=== PATIENT | female | born 1960 | race African-American/Black ===

== ENCOUNTER → 2021-11-12 | Outpatient (CLI) | payer MEDICARE, OTHER | LOC: CARD 14:08 | PROVIDERS: ATTEND Family Medicine | DX: I49.9 Cardiac arrhythmia, unspecified (principal) | CPT/HCPCS: 93005 ==

== ENCOUNTER 2021-12-03 13:17 | Emergency (ER) | payer MEDICARE ==
[~2021-12-03] VITALS: Ht 170.2 cm; Wt 123.4 kg
[2021-12-03] MEDS ORDERED: NS IV 1000 ML 1,000 ML IV SCH ×2 (13:45→15:30)
--- NOTE | 2021-12-03 13:49 | ED Respiratory ---
General Chief Complaint: Respiratory Problems Stated Complaint: SOA - CHEST PAIN Source: patient, family Exam Limitations: no limitations History of Present Illness Date Seen by Provider: Dec 03, 2021 Time Seen by Provider: 13:31 Initial Comments Patient is a 61-year-old female with a history of hypertension and diabetes who presents to the emergency department today with a chief complaint of body aches, shortness of air, chest discomfort, nonproductive cough today. Patient states she has had symptoms for 3 or 4 days. She was diagnosed with "pneumonia" 3 days ago. She was seen at [facility] urgent care, placed on Levaquin and a series of 3 Rocephin injections. When she went back today to the clinic for her third Ro cephin injection they state she still sounded very wheezy and she is still sick. They instead gave her a shot of Decadron. They noted that she was hypoxic on room air and sent her to the ER for further evaluation. Patient states her cough has been productive of a thick cream-colored mucus. No hemoptysis. She states its not productive today. She was tested for COVID 3 days ago and states it was negative, she is not vaccinated. Unknown hemoglobin A1c. She states her normal blood sugars around 140. No urinary complaints. She is only urinated once today and has not had anything to drink. No bowel issues, did have 1 episode of diarrhea this morning. No swelling in her legs or cramping in her calves, no history of blood clot. No recent prolonged immobility/travel. She states she has been taking her Levaquin. She has a history of asthma as well and did have a breathing treatment prior to arrival. Initially she was 82% on room air via pulse oximetry on her finger when the pulse ox was placed on her forehead she is 98 to 100%. No increased work of breathing or respiratory distress noted. All other review of systems reviewed and negative except as stated Timing/Duration: other (3-4 days) Severity: moderate Modifying Factors: Improves With Albuterol Inhaler Associated Symptoms: chest pain/soreness, lightheadedness, muscle aches, shortness of breath, sore throat Allergies and Home Medications Allergies Coded Allergies: No Known Drug Allergies (Unverified , 12/03/21) Patient Home Medication List Home Medication List Reviewed: Yes Guaifenesin/Dextromethorphan (Mucinex Dm ER 1,200-60 mg Tab) 1,200 Mg-60 Mg Tbmp.12hr, 1 EACH PO BID PRN for cough Prescribed by: WM HIGGINS on 12/03/21 1530 Review of Systems Review of Systems Constitutional: see HPI, malaise, weakness EENTM: throat pain Respiratory: cough; No phlegm; short of breath Cardiovascular: chest pain (soreness) Past Nbpsgaw-Wbpfkl-Zffnks Hx Patient Social History Tobacco Use?: No Smoking Status: Never a Smoker Smokeless Tobacco Frequency: Never a User Use of E-Cig and/or Vaping dev: No Use of E-Cig and/or Vaping Nikita: Never a User Substance use?: Yes Substance type: Marijuana Substance frequency: Once in a while Alcohol Use?: Yes Alcohol type: Hard Liquor Alcohol Frequency: Once in a while Pt feels they are or have been: No Physical Exam Vital Signs - First Documented 12/03/21 13:18 Pulse Ox 100 Capillary Refill : Height: '" Weight: lbs. oz. kg; BMI Method: General Appearance: WD/WN, mild distress Eyes: Bilateral Eye Normal Inspection, Bilateral Eye PERRL, Bilateral Eye EOMI HEENT: PERRL/EOMI Neck: normal inspection Respiratory: lungs clear, normal breath sounds, no respiratory distress, no accessory muscle use Cardiovascular: normal peripheral pulses, regular rate, rhythm Gastrointestinal: normal bowel sounds, non tender, soft Extremities: non-tender, normal inspection, no pedal edema, no calf tenderness Neurologic/Psychiatric: alert, normal mood/affect, oriented x 3 Skin: normal color, warm/dry Focused Exam Lactate Level 12/03/21 13:40: Lactic Acid Level 1.00 Lactic Acid Level Laboratory Tests Test 12/03/21 13:40 Lactic Acid Level 1.00 MMOL/L (0.50-2.00) Progress/Results/Core Measures Suspected Sepsis SIRS Temperature: Pulse: Respiratory Rate: Laboratory Tests 12/03/21 13:40: White Blood Count 13.3H Blood Pressure / Mean: 12/03/21 13:40: Lactic Acid Level 1.00 Laboratory Tests 12/03/21 13:40: Creatinine 0.87, INR Comment 1.1, Platelet Count 298, Total Bilirubin 0.5 Results/Orders Lab Results Laboratory Tests Test 12/03/21 13:40 12/03/21 13:47 12/03/21 14:36 Range/Units White Blood Count 13.3 H 4.3-11.0 10^3/uL Red Blood Count 4.06 3.80-5.11 10^6/uL Hemoglobin 11.9 11.5-16.0 g/dL Hematocrit 37 35-52 % Mean Corpuscular Volume 90 80-99 fL Mean Corpuscular Hemoglobin 29 25-34 pg Mean Corpuscular Hemoglobin Concent 33 32-36 g/dL Red Cell Distribution Width 14.6 H 10.0-14.5 % Platelet Count 298 130-400 10^3/uL Mean Platelet Volume 10.3 9.0-12.2 fL Immature Granulocyte % (Auto) 0 % Neutrophils (%) (Auto) 84 H 42-75 % Lymphocytes (%) (Auto) 11 L 12-44 % Monocytes (%) (Auto) 3 0-12 % Eosinophils (%) (Auto) 1 0-10 % Basophils (%) (Auto) 0 0-10 % Neutrophils # (Auto) 11.2 H 1.8-7.8 10^3/uL Lymphocytes # (Auto) 1.5 1.0-4.0 10^3/uL Monocytes # (Auto) 0.4 0.0-1.0 10^3/uL Eosinophils # (Auto) 0.2 0.0-0.3 10^3/uL Basophils # (Auto) 0.1 0.0-0.1 10^3/uL Immature Granulocyte # (Auto) 0.1 0.0-0.1 10^3/uL Prothrombin Time 15.0 H 12.2-14.7 SEC INR Comment 1.1 0.8-1.4 Activated Partial Thromboplast Time 33 24-35 SEC Sodium Level 142 135-145 MMOL/L Potassium Level 3.6 3.6-5.0 MMOL/L Chloride Level 104 98-107 MMOL/L Carbon Dioxide Level 28 21-32 MMOL/L Anion Gap 10 5-14 MMOL/L Blood Urea Nitrogen 13 7-18 MG/DL Creatinine 0.87 0.60-1.30 MG/DL Estimat Glomerular Filtration Rate 76 BUN/Creatinine Ratio 15 Glucose Level 140 H 70-105 MG/DL Lactic Acid Level 1.00 0.50-2.00 MMOL/L Calcium Level 9.0 8.5-10.1 MG/DL Corrected Calcium 9.3 8.5-10.1 MG/DL Total Bilirubin 0.5 0.1-1.0 MG/DL Aspartate Amino Transf (AST/SGOT) 19 5-34 U/L Alanine Aminotransferase (ALT/SGPT) 16 0-55 U/L Alkaline Phosphatase 95 40-136 U/L C-Reactive Protein High Sensitivity 13.37 H 0.00-0.50 MG/DL Total Protein 7.5 6.4-8.2 GM/DL Albumin 3.6 3.2-4.5 GM/DL Procalcitonin 0.39 H <0.10 NG/ML SARS-CoV-2 RNA (RT-PCR) Not Detected Not Detecte Urine Color YELLOW Urine Clarity CLEAR Urine pH 5.5 5-9 Urine Specific [place] 1.025 H 1.016-1.022 Urine Protein NEGATIVE NEGATIVE Urine Glucose (UA) NEGATIVE NEGATIVE Urine Ketones NEGATIVE NEGATIVE Urine Nitrite NEGATIVE NEGATIVE Urine Bilirubin NEGATIVE NEGATIVE Urine Urobilinogen 0.2 < = 1.0 MG/DL Urine Leukocyte Esterase NEGATIVE NEGATIVE Urine RBC (Auto) NEGATIVE NEGATIVE Urine RBC NONE /HPF Urine WBC 0-2 /HPF Urine Squamous Epithelial Cells 10-25 H /HPF Urine Crystals NONE /LPF Urine Bacteria FEW H /HPF Urine Casts NONE /LPF Urine Mucus NEGATIVE /LPF Urine Culture Indicated NO Micro Results Microbiology 12/03/21 Urine Culture - Final, Complete NO GROWTH 12/03/21 Blood Culture - Preliminary, Resulted No growth 12/03/21 Blood Culture - Preliminary, Resulted No growth My Orders Orders - WM HIGGINS MD Cbc With Automated Diff (12/03/21 13:39) Comprehensive Metabolic Panel (12/03/21 13:39) Blood Culture (12/03/21 13:39) Urinalysis (12/03/21 13:39) Urine Culture (12/03/21 13:39) Protime With Inr (12/03/21 13:39) Partial Thromboplastin Time (12/03/21 13:39) Chest 1 View, Ap/Pa Only (12/03/21 13:39) Ed Iv/Invasive Line Start (12/03/21 13:39) Ed Iv/Invasive Line Start (12/03/21 13:39) Vital Signs Adult Sepsis Patie Q15M (12/03/21 13:39) O2 (12/03/21 13:39) Remove Rings In Anticipation O (12/03/21 13:39) Lactic Acid Analyzer (12/03/21 13:39) Covid 19 Inhouse Test (12/03/21 13:39) Procalcitonin (Pct) (12/03/21 13:39) Hs C Reactive Protein (12/03/21 13:39) Isolation Central Supply Req (12/03/21 13:39) Ns Iv 1000 Ml (Sodium Chloride 0.9%) (12/03/21 13:45) Ns Iv 1000 Ml (Sodium Chloride 0.9%) (12/03/21 15:30) Ceftriaxone 1 Gm Pre-Mix (Rocephin 1 Gm (12/03/21 15:30) Vital Signs/I&O 12/03/21 12/03/21 12/03/21 12/03/21 13:18 13:18 13:18 16:48 Temp 36.7 36.1 Pulse 64 67 Resp 16 15 B/P (MAP) 197/91 (126) 164/84 Pulse Ox 100 99 O2 Delivery Room Air Room Air Room Air Room Air Capillary Refill : Progress Note : Time: 15:24 Progress Note Patient reassessed, resting comfortably, heart rate remains in the 60s, slightly hypertensive with a systolic blood pressure of 194. Oxygen saturations 100%. No increased work of breathing/respiratory distress. Labs have been reviewed, she has a mild leukocytosis at 13,000. The rest of her labs are reassuring/unremarkable. No objective findings concerning for sepsis. Lactic acid is 1. We will go ahead and give her her third dose of Rocephin. I am going to write her some Robitussin with Phenergan. She has not been sleeping at night secondary to cough and generalized body aches and fatigue. She is COVID- negative. She states she has a total of a 10-day course of Levaquin, I have advised her to finish this. We discussed return precautions. She is comfortable with plan of care. All questions are sought and answered. Diagnostic Imaging Diagonstic Imaging: Xray Plain Films/CT/US/NM/MRI: chest Comments [facility]. [place], [place] NAME: ALAINA HERRERA [facility] REC#: [id number] PT STATUS: REG ER : 1960 PHYSICIAN: WM HIGGINS MD ADMIT DATE: 12/03/21/ER Draft Date of Exam:12/03/21 CHEST 1 VIEW, AP/PA ONLY INDICATION: Shortness of air. Cough. Pneumonia. COMPARISON: None FINDINGS: Single frontal radiographic view of the chest was obtained and shows normal cardiac silhouette and pulmonary vasculature. Lung clark show asymmetric elevation of the right hemidiaphragm with right basilar atelectasis. Otherwise, the lungs are clear. No large effusion or pneumothorax is seen. Osseous structures show no gross acute abnormalities. IMPRESSION: 1. Asymmetric elevation of the right hemidiaphragm with right basilar atelectasis. Dictated on workstation # [id number] Dict: 12/03/21 1448 Trans: 12/03/21 1450 [facility] [id number] Interpreted by: ANISA LOPEZ MD Electronically signed by: Departure Impression Primary Impression: Pneumonia Qualified Codes: J18.9 - Pneumonia, unspecified organism Additional Impression: Asthma Qualified Codes: J45.909 - Unspecified asthma, uncomplicated Disposition: HOME, SELF-CARE Condition: Improved Departure-Patient Inst. Decision time for Depature: 15:25 Referrals: FLIP POLLARD DO (PCP/Family) Primary Care Physician Patient Instructions: Pneumonia in Adults Add. Discharge Instructions: drink plenty of fluids to stay well hydrated. Finish your prescription of Levaquin. Use your albuterol (proair) inhaler every 6 hours as needed for shortness of breath/wheezing. Over the counter generic Ibuprofen 3 tablets (which is 600mg) with food every 6 hours for body aches/fever, pain. Follow up with Dr Pollard next week. Please come back to the Emergency Department if you become sicker, have high fever, worsening shortness of breath or any other emergent, concerning symptoms develop. Cough medications as needed (mucinex DM 1 tablet twice a day as needed for cough).. Scripts Guaifenesin/Dextromethorphan (Mucinex Dm ER 1,200-60 mg Tab) 1,200 Mg-60 Mg Tbmp.12hr 1 EACH PO BID PRN for cough, #20 EA Prov: WM HIGGINS MD 12/03/21 Copy Copies To 1: FLIP POLLARD KATHRYN M MD Dec 03, 2021 13:49
[2021-12-03 14:01] LABS: BASOPHILS # (AUTO) 0.1 10^3/uL (0.0-0.1); BASOPHILS % (AUTO) 0 % (0-10); EOSINOPHILS # (AUTO) 0.2 10^3/uL (0.0-0.3); EOSINOPHILS % (AUTO) 1 % (0-10); HEMATOCRIT 37 % (35-52); HEMOGLOBIN 11.9 g/dL (11.5-16.0); LYMPHOCYTES # (AUTO) 1.5 10^3/uL (1.0-4.0); LYMPHOCYTES % (AUTO) 11 % (12-44); MEAN CORPUSCULAR HEMOGLOBIN 29 pg (25-34); MEAN CORPUSCULAR HGB CONC 33 g/dL (32-36); MEAN CORPUSCULAR VOLUME 90 fL (80-99); MEAN PLATELET VOLUME 10.3 fL (9.0-12.2); MONOCYTES # (AUTO) 0.4 10^3/uL (0.0-1.0); MONOCYTES % (AUTO) 3 % (0-12); NEUTROPHILS # (AUTO) 11.2 10^3/uL (1.8-7.8); NEUTROPHILS % (AUTO) 84 % (42-75); PLATELET COUNT 298 10^3/uL (130-400); WHITE BLOOD COUNT 13.3 10^3/uL (4.3-11.0)
[2021-12-03 14:08] LABS: ALBUMIN 3.6 GM/DL (3.2-4.5)
[2021-12-03 14:09] LABS: POTASSIUM 3.6 MMOL/L (3.6-5.0)
[2021-12-03 14:11] LABS: TOTAL PROTEIN 7.5 GM/DL (6.4-8.2)
[2021-12-03 14:12] LABS: INR 1.1 (0.8-1.4)
[2021-12-03 14:13] LABS: BILIRUBIN,TOTAL 0.5 MG/DL (0.1-1.0)
[2021-12-03 14:15] LABS: CREATININE SERUM 0.87 MG/DL (0.60-1.30)
--- NOTE | 2021-12-03 14:51 | Diagnostic Imaging Report ---
INDICATION: Shortness of air. Cough. Pneumonia. COMPARISON: None FINDINGS: Single frontal radiographic view of the chest was obtained and shows normal cardiac silhouette and pulmonary vasculature. Lung clark show asymmetric elevation of the right hemidiaphragm with right basilar atelectasis. Otherwise, the lungs are clear. No large effusion or pneumothorax is seen. Osseous structures show no gross acute abnormalities. IMPRESSION: 1. Asymmetric elevation of the right hemidiaphragm with right basilar atelectasis. Dictated by: Dictated on workstation # [id number]
[2021-12-03 14:53] LABS: BILIRUBIN,URINE NEGATIVE (NEGATIVE); CLARITY,URINE CLEAR; COLOR,URINE YELLOW; GLUCOSE, URINE (UA) NEGATIVE (NEGATIVE); KETONES,URINE NEGATIVE (NEGATIVE); LEUKOCYTE ESTERASE ,URINE NEGATIVE (NEGATIVE); NITRITE,URINE NEGATIVE (NEGATIVE); PH,URINE 5.5 (5-9); PROTEIN,URINE NEGATIVE (NEGATIVE)
[2021-12-03 15:08] LABS: BACTERIA,URINE FEW /HPF; WBC,URINE 0-2 /HPF
[2021-12-03] MEDS ORDERED: GUAI1TBM19 PO (15:30)
[2021-12-03] MEDS ORDERED: cefTRIAXone 1 GM PRE-MIX 50 ML IV ONE (15:30)
[2021-12-03 16:48] VITALS: BP 164/84
== END 2021-12-03 16:48 | disposition home or self-care (01) ==
LOC: EDUNIT# 13:17 → ER 13:18
DX: J18.9 Pneumonia, unspecified organism (principal); J45.909 Unspecified asthma, uncomplicated; R03.0 Elevated blood-pressure reading, without diagnosis of hypertension; D72.829 Elevated white blood cell count, unspecified; Z20.822 Contact with and (suspected) exposure to COVID-19; Z28.310 Unvaccinated for COVID-19
CPT/HCPCS: 36415; 71045; 80053; 81000; 83605; 84145; 85025; 85610; 85730; 86141; 87040; 87088; 87636

== ENCOUNTER 2021-12-10 11:54 | Emergency (ER) | payer MEDICARE ==
[~2021-12-10] VITALS: Ht 170.2 cm; Wt 123.4 kg
[~2021-12-10 11:54] MED LIST: GUAI1TBM19 PO
[2021-12-10 12:01] VITALS: BP 194/80
[2021-12-10] MEDS ORDERED: NS IV 1000 ML 1,000 ML IV STA (12:15)
[2021-12-10] MEDS ORDERED: ONDANSETRON 4 MG/2 ML (SDV) Z0FRAN IVP ONE (12:15)
[2021-12-10] MEDS ORDERED: fentaNYL INJ 100 MCG/2 ML AMP IVP STA (12:15)
--- NOTE | 2021-12-10 12:23 | ED General ---
General Stated Complaint: VOMITING - COUGH - SOA Source of Information: Patient Exam Limitations: No Limitations History of Present Illness Date Seen by Provider: Dec 10, 2021 Time Seen by Provider: 12:05 Initial Comments Here with report of not resolving, shortness of breath, voice changes and left lower and left upper quadrant abdominal pain. Apparently has been treated for pneumonia for the last 9 days and she is on Levaquin. Things are not changing. Apparently she had concerns about oxygen saturations and was here sent here for evaluation. The O2 saturations on her fingers do not show well but historically we have had to use her forehead. This was done today and she is satting 96% on room air. Reports that she has had constipation for a week and has the left- sided abdominal pain that is worsening. She has had cough, fever, chills, decreased appetite and fatigue. Symptoms have been going on for over 10 days. Timing/Duration: Getting Worse, Other (Greater than 1 week) Severity: Moderate Modifying Factors: improves with Rest Associated Systoms: No Chest Pain; Cough, Fever/Chills, Nausea/Vomiting, Shortness of Air, Weakness Allergies and Home Medications Allergies Coded Allergies: No Known Drug Allergies (Unverified , 12/03/21) Patient Home Medication List Home Medication List Reviewed: Yes Guaifenesin/Dextromethorphan (Mucinex Dm ER 1,200-60 mg Tab) 1,200 Mg-60 Mg Tbmp.12hr, 1 EACH PO BID PRN for cough Prescribed by: WM HIGGINS on 12/03/21 1530 Review of Systems Review of Systems Constitutional: see HPI EENTM: nose congestion, throat pain Respiratory: cough, short of breath Cardiovascular: no symptoms reported Gastrointestinal: LUQ, LLQ, abdominal pain (Aching), constipation; No diarrhea; nausea Genitourinary: no symptoms reported Musculoskeletal: muscle pain; No neck pain Skin: No change in color; lesions Psychiatric/Neurological: Denies Headache, Denies Weakness All Other Systems Reviewed Negative Unless Noted: Yes Past Cfljlgc-Tloswf-Hkniwz Hx Patient Social History Tobacco Use?: No Use of E-Cig and/or Vaping dev: No Substance use?: No Alcohol Use?: No Past Medical History Surgeries: Yes Hysterectomy Respiratory: Yes Asthma Cardiac: Yes High Cholesterol, Hypertension Neurological: No Genitourinary: No Gastrointestinal: No Musculoskeletal: No Endocrine: Yes Diabetes, Non-Insulin dep HEENT: No Psychosocial: Yes Anxiety, Depression Family Medical History Reviewed Nursing Family Hx No Pertinent Family Hx Physical Exam-Suspected Sepsis Physical Exam Vital Signs Vital Signs - First Documented 12/10/21 12:15 Pulse Ox 97 Capillary Refill : Height, Weight, BMI Height: '" Weight: lbs. oz. kg; 42.00 BMI Method: General Appearance: No Apparent Distress, WD/WN HEENT: PERRL/EOMI, Pharyngeal Erythema, Other (Mild erythema and dry mucous membranes. Does have laryngitis type voice but is having no breathing problems. No stridor.) Neck: Non Tender, Supple Respiratory: No Respiratory Distress; No Crackles, No Wheezing Cardiovascular: No Murmur, Tachycardia Gastrointestinal: Soft; No Distended, No Guarding; Tenderness (Left upper and left lower quadrant and flank) Back: Normal Inspection, No CVA Tenderness, No Vertebral Tenderness Extremity: Normal Range of Motion, Non Tender Neurologic/Psychiatric: Alert, Oriented x3 Skin: normal color, warm/dry Focused Exam Lactate Level 12/10/21 12:15: Lactic Acid Level 1.22 Lactic Acid Level Progress/Results/Core Measures Suspected Sepsis SIRS Temperature: Pulse: Respiratory Rate: Laboratory Tests 12/10/21 12:15: White Blood Count 17.6H Blood Pressure / Mean: 12/10/21 12:15: Lactic Acid Level 1.22 Laboratory Tests 12/10/21 12:15: Creatinine 1.11, INR Comment 1.2, Platelet Count 345, Total Bilirubin 0.5 Results/Orders Lab Results Laboratory Tests Test 12/10/21 12:15 12/10/21 13:58 Range/Units White Blood Count 17.6 H 4.3-11.0 10^3/uL Red Blood Count 4.49 3.80-5.11 10^6/uL Hemoglobin 13.0 11.5-16.0 g/dL Hematocrit 40 35-52 % Mean Corpuscular Volume 89 80-99 fL Mean Corpuscular Hemoglobin 29 25-34 pg Mean Corpuscular Hemoglobin Concent 32 32-36 g/dL Red Cell Distribution Width 14.9 H 10.0-14.5 % Platelet Count 345 130-400 10^3/uL Mean Platelet Volume 9.4 9.0-12.2 fL Immature Granulocyte % (Auto) 1 % Neutrophils (%) (Auto) 70 42-75 % Lymphocytes (%) (Auto) 22 12-44 % Monocytes (%) (Auto) 6 0-12 % Eosinophils (%) (Auto) 0 0-10 % Basophils (%) (Auto) 1 0-10 % Neutrophils # (Auto) 12.3 H 1.8-7.8 10^3/uL Lymphocytes # (Auto) 3.9 1.0-4.0 10^3/uL Monocytes # (Auto) 1.1 H 0.0-1.0 10^3/uL Eosinophils # (Auto) 0.1 0.0-0.3 10^3/uL Basophils # (Auto) 0.1 0.0-0.1 10^3/uL Immature Granulocyte # (Auto) 0.1 0.0-0.1 10^3/uL Neutrophils % (Manual) 69 % Lymphocytes % (Manual) 20 % Monocytes % (Manual) 8 % Eosinophils % (Manual) 1 % Basophils % (Manual) 0 % Metamyelocytes % 1 % Band Neutrophils 1 % Blood Morphology Comment NORMAL Prothrombin Time 15.6 H 12.2-14.7 SEC INR Comment 1.2 0.8-1.4 Activated Partial Thromboplast Time 30 24-35 SEC Sodium Level 141 135-145 MMOL/L Potassium Level 3.4 L 3.6-5.0 MMOL/L Chloride Level 101 98-107 MMOL/L Carbon Dioxide Level 29 21-32 MMOL/L Anion Gap 11 5-14 MMOL/L Blood Urea Nitrogen 17 7-18 MG/DL Creatinine 1.11 0.60-1.30 MG/DL Estimat Glomerular Filtration Rate 57 BUN/Creatinine Ratio 15 Glucose Level 90 70-105 MG/DL Lactic Acid Level 1.22 0.50-2.00 MMOL/L Calcium Level 8.9 8.5-10.1 MG/DL Corrected Calcium 9.1 8.5-10.1 MG/DL Total Bilirubin 0.5 0.1-1.0 MG/DL Aspartate Amino Transf (AST/SGOT) 19 5-34 U/L Alanine Aminotransferase (ALT/SGPT) 15 0-55 U/L Alkaline Phosphatase 79 40-136 U/L C-Reactive Protein High Sensitivity 3.80 H 0.00-0.50 MG/DL Total Protein 7.5 6.4-8.2 GM/DL Albumin 3.8 3.2-4.5 GM/DL Lipase < 4 L 8-78 U/L Procalcitonin 0.04 <0.10 NG/ML Urine Color YELLOW Urine Clarity CLEAR Urine pH 5.5 5-9 Urine Specific [place] >=1.030 1.016-1.022 Urine Protein NEGATIVE NEGATIVE Urine Glucose (UA) NEGATIVE NEGATIVE Urine Ketones 2+ H NEGATIVE Urine Nitrite NEGATIVE NEGATIVE Urine Bilirubin 1+ H NEGATIVE Urine Urobilinogen 0.2 < = 1.0 MG/DL Urine Leukocyte Esterase NEGATIVE NEGATIVE Urine RBC (Auto) NEGATIVE NEGATIVE Urine RBC 0-2 /HPF Urine WBC 2-5 /HPF Urine Squamous Epithelial Cells 10-25 H /HPF Urine Crystals NONE /LPF Urine Bacteria FEW H /HPF Urine Casts NONE /LPF Urine Mucus SMALL H /LPF Urine Culture Indicated NO My Orders Orders - RONEL WHYTE MD Cbc With Automated Diff (12/10/21 12:15) Comprehensive Metabolic Panel (12/10/21 12:15) Blood Culture (12/10/21 12:15) Sputum Culture (12/10/21 12:15) Urinalysis (12/10/21 12:15) Urine Culture (12/10/21 12:15) Protime With Inr (12/10/21 12:15) Partial Thromboplastin Time (12/10/21 12:15) Chest 1 View, Ap/Pa Only (12/10/21 12:15) Ed Iv/Invasive Line Start (12/10/21 12:15) Vital Signs Adult Sepsis Patie Q15M (12/10/21 12:15) O2 (12/10/21 12:15) Remove Rings In Anticipation O (12/10/21 12:15) Lactic Acid Analyzer (12/10/21 12:15) Ondansetron Injection (Zofran Injectio (12/10/21 12:15) Ns Iv 1000 Ml (Sodium Chloride 0.9%) (12/10/21 12:15) Fentanyl Inj (Sublimaze Injection) (12/10/21 12:15) Lipase (12/10/21 12:15) Manual Differential (12/10/21 12:15) Hs C Reactive Protein (12/10/21 13:16) Procalcitonin (Pct) (12/10/21 13:16) Ct Abdomen/Pelvis W (12/10/21 15:12) Iohexol Injection (Omnipaque 350 Mg/Ml 1 (12/10/21 15:15) Received Contrast (Hold Metformin- Contr (12/10/21 15:15) Ns (Ivpb) (Sodium Chloride 0.9% Ivpb Bag (12/10/21 15:15) Sodium Chloride Flush (Catheter Flush Sy (12/10/21 15:15) Dexamethasone Injection (Decadron Inje (12/10/21 16:45) Medications Given in ED Current Medications Medications Dose Ordered Sig/Vane Route Start Time Stop Time Status Last Admin Dose Admin Iohexol 100 ml ONCE ONCE IV 12/10/21 15:15 12/10/21 15:46 DC 12/10/21 15:27 99 ML Ondansetron HCl 4 mg ONCE ONCE IVP 12/10/21 12:15 12/10/21 12:18 DC 12/10/21 12:33 4 MG Sodium Chloride 10 ml NEEDED PRN IV 12/10/21 15:15 12/10/21 15:27 10 ML Sodium Chloride 100 ml ONCE ONCE IV 12/10/21 15:15 12/10/21 15:46 DC 12/10/21 15:27 80 ML Vital Signs/I&O 12/10/21 12/10/21 12/10/21 12:01 12:01 12:15 Temp 36.0 Pulse 97 Resp 16 B/P (MAP) 194/80 (118) Pulse Ox 97 O2 Delivery Room Air Room Air Room Air Capillary Refill : Progress Note : Progress Note Seen and evaluated. IV, labs, UA, chest x-ray, blood cultures and lactic acid ordered. Normal saline 1 L bolus. Fentanyl 50 mcg IV and Zofran 4 mg IV ordered. Monitor patient. 1644: Overall doing better. We did add CT abdomen and pelvis due to the abdominal pain. That did not show any acute findings. She may be had abdominal pain due to cough and there is some constipation. No obvious obstruction or other mass or pathology on CT read. We will go ahead and give Decadron 10 mg IV for upper respiratory symptoms including laryngitis. We can consider outpatient steroids but she is unable to afford those. We will go ahead and do Afrin nasal spray 2 sprays to each nostril now and have her continue that for 3 days. Overall she feels comfortable with discharge home. Discharged home with return precautions. Patient and family verbalized understanding instructions and agreement with plan. Diagnostic Imaging Diagonstic Imaging: Xray Plain Films/CT/US/NM/MRI: chest Comments [facility], [place] NAME: ALAINA HERRERA [facility] REC#: [id number] PT STATUS: REG ER : 1960 PHYSICIAN: RONEL WHYTE MD ADMIT DATE: 12/10/21/ER Draft Date of Exam:12/10/21 CHEST 1 VIEW, AP/PA ONLY INDICATION: Shortness of breath, cough, nausea and vomiting, left lower abdominal pain. TECHNIQUE: Single-view chest 01:06 p.m. CORRELATION STUDY: 12/03/2021. FINDINGS: Prominent elevated right diaphragm with atelectasis or infiltrate in the right lung base persisting. Left lung is stable. Heart size and mediastinum remain enlarged and prominent. Vasculature is borderline. IMPRESSION: 1. Stable cardiac enlargement with borderline vasculature. 2. Unchanged elevated right diaphragm with right lower lung volume loss. Dictated on workstation # [id number] Dict: 12/10/21 1325 Trans: 12/10/21 1329 [id number] Interpreted by: JESSICA BARRETT DO Electronically signed by: Diagonstic Imaging: CT Plain Films/CT/US/NM/MRI: abdomen, pelvis Comments [facility] [place] NAME: ALAINA HERRERA [facility] REC#: [id number] PT STATUS: REG ER : 1960 PHYSICIAN: RONEL WHYTE MD ADMIT DATE: 12/10/21/ER Draft Date of Exam:12/10/21 CT ABDOMEN/PELVIS W PROCEDURE: CT abdomen and pelvis with contrast. TECHNIQUE: Multiple contiguous axial images were obtained through the abdomen and pelvis after administration of intravenous contrast. Auto Exposure Controls were utilized during the CT exam to meet ALARA standards for radiation dose reduction. All CT scans use one or more of the following dose optimizing techniques: automated exposure control, MA and/or KvP adjustment based on patient size and exam type or iterative reconstruction. INDICATION: Left lower quadrant abdominal pain. FINDINGS: There is atelectasis at the right lung base. Liver appears normal. Gallbladder appears normal. Portal vein is patent. Pancreas is normal. Spleen is not enlarged. GE junction is unremarkable. Kidneys and adrenals appear normal. There is a large amount of stool in the ascending colon. There is no evidence of appendicitis. Small bowel is unremarkable. Uterus is surgically absent. Urinary bladder is normal. There are no pathologic masses or fluid collections seen in the pelvis. There is no intraperitoneal free air or free fluid. IMPRESSION: No acute abnormality is seen in the abdomen or pelvis. Dictated on workstation # [id number] Dict: 12/10/21 1533 Trans: 12/10/21 1544 [facility] [id number] Interpreted by: RONEL DUGAN MD Electronically signed by: Departure Impression Primary Impression: Bronchitis Disposition: 01 HOME, SELF-CARE Condition: Stable Departure-Patient Inst. Decision time for Depature: 16:46 Referrals: FLIP POLLARD DO (PCP/Family) Primary Care Physician Patient Instructions: Bronchitis, Adult ED Add. Discharge Instructions: Use the Afrin nasal spray (occipitalis) 2 sprays to each nostril twice daily for 3 days only and then stop. Do not use more than 3 days. Continue other medications as previously prescribed. Follow-up with your doctor early next week for recheck and further evaluation. Return for worse pain, fever, vomiting, weakness, breathing problems or other concerns as needed.. Plenty of fluids and get plenty of rest. You may take Tylenol/acetaminophen and/or ibuprofen as needed for pain per package directions. RONEL WHYTE MD Dec 10, 2021 12:23
[2021-12-10 12:35] LABS: BASOPHILS # (AUTO) 0.1 10^3/uL (0.0-0.1); BASOPHILS % (AUTO) 1 % (0-10); EOSINOPHILS # (AUTO) 0.1 10^3/uL (0.0-0.3); EOSINOPHILS % (AUTO) 0 % (0-10); HEMATOCRIT 40 % (35-52); LYMPHOCYTES # (AUTO) 3.9 10^3/uL (1.0-4.0); LYMPHOCYTES % (AUTO) 22 % (12-44); MEAN CORPUSCULAR HEMOGLOBIN 29 pg (25-34); MEAN CORPUSCULAR HGB CONC 32 g/dL (32-36); MEAN CORPUSCULAR VOLUME 89 fL (80-99); MEAN PLATELET VOLUME 9.4 fL (9.0-12.2); MONOCYTES # (AUTO) 1.1 10^3/uL (0.0-1.0); MONOCYTES % (AUTO) 6 % (0-12); NEUTROPHILS # (AUTO) 12.3 10^3/uL (1.8-7.8); NEUTROPHILS % (AUTO) 70 % (42-75); PLATELET COUNT 345 10^3/uL (130-400); WHITE BLOOD COUNT 17.6 10^3/uL (4.3-11.0)
[2021-12-10 12:46] LABS: ALBUMIN 3.8 GM/DL (3.2-4.5); CHLORIDE 101 MMOL/L (98-107); POTASSIUM 3.4 MMOL/L (3.6-5.0); SODIUM 141 MMOL/L (135-145)
[2021-12-10 12:48] LABS: CALCIUM 8.9 MG/DL (8.5-10.1)
[2021-12-10 12:49] LABS: GLUCOSE 90 MG/DL (70-105); TOTAL PROTEIN 7.5 GM/DL (6.4-8.2)
[2021-12-10 12:50] LABS: CARBON DIOXIDE 29 MMOL/L (21-32); INR 1.2 (0.8-1.4); PROTHROMBIN TIME PATIENT 15.6 SEC (12.2-14.7)
[2021-12-10 12:51] LABS: BILIRUBIN,TOTAL 0.5 MG/DL (0.1-1.0)
[2021-12-10 12:52] LABS: ALKALINE PHOSPHATASE 79 U/L (40-136); CREATININE SERUM 1.11 MG/DL (0.60-1.30); GFR ESTIMATED 57
[2021-12-10 12:54] LABS: BUN/CREATININE RATIO 15
[2021-12-10 12:55] LABS: ALANINE AMINOTRANSFERASE 15 U/L (0-55)
[2021-12-10 12:56] LABS: LIPASE < 4 U/L (8-78)
[2021-12-10 12:59] LABS: BAND NEUTROPHILS 1 %; BASOPHILS % (MANUAL) 0 %; EOSINOPHILS % (MANUAL) 1 %; LYMPHOCYTES % (MANUAL) 20 %; METAMYELOCYTES % 1 %; MONOCYTES % (MANUAL) 8 %; NEUTROPHILS % (MANUAL) 69 %; RBC MORPH NORMAL
--- NOTE | 2021-12-10 13:29 | Diagnostic Imaging Report ---
INDICATION: Shortness of breath, cough, nausea and vomiting, left lower abdominal pain. TECHNIQUE: Single-view chest 01:06 p.m. CORRELATION STUDY: 12/03/2021. FINDINGS: Prominent elevated right diaphragm with atelectasis or infiltrate in the right lung base persisting. Left lung is stable. Heart size and mediastinum remain enlarged and prominent. Vasculature is borderline. IMPRESSION: 1. Stable cardiac enlargement with borderline vasculature. 2. Unchanged elevated right diaphragm with right lower lung volume loss. Dictated by: Dictated on workstation # [id number]
[2021-12-10 14:06] LABS: CLARITY,URINE CLEAR; COLOR,URINE YELLOW; GLUCOSE, URINE (UA) NEGATIVE (NEGATIVE); KETONES,URINE 2+ (NEGATIVE); LEUKOCYTE ESTERASE ,URINE NEGATIVE (NEGATIVE); NITRITE,URINE NEGATIVE (NEGATIVE); PH,URINE 5.5 (5-9); PROTEIN,URINE NEGATIVE (NEGATIVE)
[2021-12-10 14:20] LABS: BACTERIA,URINE FEW /HPF; BILIRUBIN,URINE 1+ (NEGATIVE); RBC,URINE 0-2 /HPF
[2021-12-10] MEDS ORDERED: HOLD METFORMIN - RECEIVED CONTRAST 20 ML VIAL IV SCH (15:15)
[2021-12-10] MEDS ORDERED: IOHEXOL 350 MG/ML 100 ML (OMNIPAQUE 350) VIAL IV ONE (15:15)
[2021-12-10] MEDS ORDERED: CATHETER FLUSH 10 ML SYR IV PRN (15:15)
[2021-12-10] MEDS ORDERED: NS 100 ML (IVPB) BAG IV ONE (15:15)
--- NOTE | 2021-12-10 15:44 | Diagnostic Imaging Report ---
PROCEDURE: CT abdomen and pelvis with contrast. TECHNIQUE: Multiple contiguous axial images were obtained through the abdomen and pelvis after administration of intravenous contrast. Auto Exposure Controls were utilized during the CT exam to meet ALARA standards for radiation dose reduction. All CT scans use one or more of the following dose optimizing techniques: automated exposure control, MA and/or KvP adjustment based on patient size and exam type or iterative reconstruction. INDICATION: Left lower quadrant abdominal pain. FINDINGS: There is atelectasis at the right lung base. Liver appears normal. Gallbladder appears normal. Portal vein is patent. Pancreas is normal. Spleen is not enlarged. GE junction is unremarkable. Kidneys and adrenals appear normal. There is a large amount of stool in the ascending colon. There is no evidence of appendicitis. Small bowel is unremarkable. Uterus is surgically absent. Urinary bladder is normal. There are no pathologic masses or fluid collections seen in the pelvis. There is no intraperitoneal free air or free fluid. IMPRESSION: No acute abnormality is seen in the abdomen or pelvis. Dictated by: Dictated on workstation # [id number]
[2021-12-10] MEDS ORDERED: OXYMETAZOLINE (AFRIN) 0.05% NA 30 ML BTL SCH (16:45)
== END 2021-12-10 17:01 | disposition home or self-care (01) ==
LOC: EDUNIT# 11:54 → ER 11:55
DX: J45.909 Unspecified asthma, uncomplicated (principal); Z28.310 Unvaccinated for COVID-19
CPT/HCPCS: 36415; 71045; 74177; 80053; 81000; 83605; 83690; 84145; 85007; 85027; 85610; 85730; 86141; 87040; 87088

== ENCOUNTER 2021-12-13 08:45 | Emergency (ER) | payer MEDICARE ==
[2021-12-13] MEDS ORDERED: ONDANSETRON 4 MG/2 ML (SDV) Z0FRAN IVP ONE (09:30)
[2021-12-13] MEDS ORDERED: NS IV 1000 ML 1,000 ML IV SCH (09:30)
[2021-12-13] MEDS ORDERED: fentaNYL INJ 100 MCG/2 ML AMP IVP ONE (09:30)
[2021-12-13] MEDS ORDERED: CATHETER FLUSH 10 ML SYR IV PRN (09:45)
[2021-12-13] MEDS ORDERED: NS 100 ML (IVPB) BAG IV ONE (09:45)
[2021-12-13] MEDS ORDERED: IOHEXOL 350 MG/ML 100 ML (OMNIPAQUE 350) VIAL IV ONE (09:45)
[2021-12-13 09:56] LABS: BILIRUBIN,URINE NEGATIVE (NEGATIVE); CLARITY,URINE CLEAR; COLOR,URINE YELLOW; GLUCOSE, URINE (UA) NEGATIVE (NEGATIVE); KETONES,URINE TRACE (NEGATIVE); LEUKOCYTE ESTERASE ,URINE NEGATIVE (NEGATIVE); NITRITE,URINE NEGATIVE (NEGATIVE); PH,URINE 5.5 (5-9); PROTEIN,URINE NEGATIVE (NEGATIVE)
[2021-12-13 10:02] LABS: BASOPHILS % (AUTO) 0 % (0-10); EOSINOPHILS % (AUTO) 0 % (0-10); HEMATOCRIT 39 % (35-52); HEMOGLOBIN 12.6 g/dL (11.5-16.0); LYMPHOCYTES # (AUTO) 3.1 10^3/uL (1.0-4.0); LYMPHOCYTES % (AUTO) 20 % (12-44); MEAN CORPUSCULAR HEMOGLOBIN 29 pg (25-34); MEAN CORPUSCULAR HGB CONC 33 g/dL (32-36); MEAN CORPUSCULAR VOLUME 89 fL (80-99); MEAN PLATELET VOLUME 9.1 fL (9.0-12.2); MONOCYTES # (AUTO) 0.9 10^3/uL (0.0-1.0); MONOCYTES % (AUTO) 6 % (0-12); NEUTROPHILS # (AUTO) 11.3 10^3/uL (1.8-7.8); NEUTROPHILS % (AUTO) 73 % (42-75); PLATELET COUNT 296 10^3/uL (130-400); WHITE BLOOD COUNT 15.4 10^3/uL (4.3-11.0)
[2021-12-13 10:04] LABS: BACTERIA,URINE TRACE /HPF; WBC,URINE RARE /HPF
[2021-12-13 10:05] LABS: YEAST,URINE FEW /HPF
[2021-12-13 10:17] LABS: ALBUMIN 3.4 GM/DL (3.2-4.5); POTASSIUM 3.5 MMOL/L (3.6-5.0)
[2021-12-13 10:18] LABS: CALCIUM 8.5 MG/DL (8.5-10.1)
[2021-12-13 10:20] LABS: TOTAL PROTEIN 6.4 GM/DL (6.4-8.2)
[2021-12-13 10:21] LABS: BILIRUBIN,TOTAL 0.5 MG/DL (0.1-1.0)
[2021-12-13 10:23] LABS: CREATININE SERUM 1.02 MG/DL (0.60-1.30)
[2021-12-13 10:26] LABS: BAND NEUTROPHILS 1 %; LYMPHOCYTES % (MANUAL) 11 %; MONOCYTES % (MANUAL) 8 %; NEUTROPHILS % (MANUAL) 80 %; RBC MORPH NORMAL
--- NOTE | 2021-12-13 10:37 | Diagnostic Imaging Report ---
PROCEDURE: CT abdomen and pelvis with contrast. TECHNIQUE: Multiple contiguous axial images were obtained through the abdomen and pelvis after administration of intravenous contrast. Auto Exposure Controls were utilized during the CT exam to meet ALARA standards for radiation dose reduction. All CT scans use one or more of the following dose optimizing techniques: automated exposure control, MA and/or KvP adjustment based on patient size and exam type or iterative reconstruction. INDICATION: Left-sided pain. Compared with CT abdomen and pelvis 12/10/2021. FINDINGS: Unobstructed kidneys nonfocal and nonacute. Pancreas unremarkable. Liver, gallbladder, bile ducts, spleen and adrenals unremarkable. There is chronic elevation of the right hemidiaphragm with subjacent right basilar partial atelectasis. No basilar pleural fluid. Aorta is nonaneurysmal and nonacute. There is no ileus or bowel obstruction. There are few scattered sigmoidal and distal colonic diverticular changes but no findings of active or acute diverticulitis. There were no findings of appendicitis. No bowel wall thickening. No perienteric or pericolonic edema. Degenerative changes to the spine remaining greatest at the L5-S1 level where there is grade 1 degenerative retrolisthesis with moderate canal and at least moderate degrees of bi-foraminal stenosis chronic. There is no acute appearing abnormality. No ascites, abscess, hematoma or acute fluid collection. The urinary bladder normal. IMPRESSION: Noninflamed diverticulosis. Chronic thoracolumbar spondylosis, no obstructive features, inflammatory process or acute appearing abnormalities. Dictated by: Dictated on workstation # [id number]
[2021-12-13] MEDS ORDERED: SUCR1TAB36 PO (10:49)
[2021-12-13] MEDS ORDERED: ONDA8TAB13 SL (10:50)
--- NOTE | 2021-12-13 10:51 | ED Abdominal Pain ---
General Chief Complaint: Abdominal/GI Problems Stated Complaint: BREATHING DIFFICULTY/NAUSEA Nursing Triage Note: PT AMB TO RM 9 WITH SPOUSE WITH C/O SOB, VOMITTING BILE AND RECOVERING FROM PNEUMONIA FOR ABOUT 10 DAYS. PT STATES THE ABD PAIN IS ON THE L SIDE AND STARTED YESTERDAY Source of Information: Patient Exam Limitations: No Limitations History of Present Illness Date Seen by Provider: Dec 13, 2021 Time Seen by Provider: 09:41 Initial Comments 61-year-old female presents emergency department today for left-sided abdominal pain. She states symptoms started on Monday and are associated with nausea and vomiting. She states she has been recovering from pneumonia. Pain is described as sharp stabbing pain in her left upper abdomen without radiation. No obvious aggravating or alleviating factors and it is constant pain. She does state that she has decreased bowel movements, no bowel movement in about a week. She is passing gas. Nausea and vomiting started yesterday. Emesis is nonbloody and nonbilious. She denies any current fevers or chills. Allergies and Home Medications Allergies Coded Allergies: No Known Drug Allergies (Unverified , 12/03/21) Patient Home Medication List Home Medication List Reviewed: Yes Guaifenesin/Dextromethorphan (Mucinex Dm ER 1,200-60 mg Tab) 1,200 Mg-60 Mg Tbmp.12hr, 1 EACH PO BID PRN for cough Prescribed by: WM HIGGINS on 12/03/21 1530 Ondansetron (Ondansetron Odt) 8 Mg Tab.rapdis, 8 MG SL Q4H PRN for NAUSEA/VOMITING Prescribed by: HELEN GRAY MD on 12/13/21 1050 Sucralfate (Carafate) 1 Gram Tablet, 1 GM PO TIDAC Prescribed by: HELEN GRAY MD on 12/13/21 1049 Review of Systems Review of Systems Constitutional: no symptoms reported EENTM: No Symptoms Reported Respiratory: Cough Cardiovascular: No Symptoms Reported Gastrointestinal: Abdominal Pain, Nausea, Vomiting Genitourinary: No Symptoms Reported Musculoskeletal: no symptoms reported Skin: no symptoms reported Psychiatric/Neurological: No Symptoms Reported Endocrine: No Symptoms Reported Hematologic/Lymphatic: No Symptoms Reported Past Tilarud-Fycbag-Wvpyqk Hx Patient Social History Tobacco Use?: No Use of E-Cig and/or Vaping dev: No Substance use?: No Alcohol Use?: No Pt feels they are or have been: No Immunizations Up To Date Influenza Vaccine Up-to-Date: No; Not Current Past Medical History Surgery/Hospitalization HX: htn, hld, dm, hysto Surgeries: Yes Hysterectomy Respiratory: Yes Asthma Cardiac: Yes High Cholesterol, Hypertension Neurological: No Genitourinary: No Gastrointestinal: No Musculoskeletal: No Endocrine: Yes Diabetes, Non-Insulin dep HEENT: No Psychosocial: Yes Anxiety, Depression Family Medical History Reviewed Nursing Family Hx No Pertinent Family Hx Physical Exam Vital Signs Vital Signs - First Documented 12/13/21 09:03 Temp 36.7 Pulse 116 Resp 20 B/P (MAP) 137/108 (118) Capillary Refill : Height/Weight/BMI Height: '" Weight: lbs. oz. kg; 42.00 BMI Method: General Appearance: WD/WN, no apparent distress HEENT: normal ENT inspection, TMs normal, pharynx normal Neck: non-tender, full range of motion, supple, normal inspection Respiratory: chest non-tender, lungs clear, normal breath sounds, no res piratory distress, no accessory muscle use Cardiovascular: regular rate, rhythm, no edema, no gallop, no murmur, tachycardia Gastrointestinal: normal bowel sounds, soft, no organomegaly, tenderness (Tenderness palpation left upper abdomen without rebound or guarding. No mass organomegaly. No skin changes. There is voluntary guarding without any rebound tenderness. Overall exam is nonsurgical.) Extremities: normal range of motion, non-tender, normal inspection, no pedal edema, no calf tenderness Neurologic/Psychiatric: alert, oriented x 3 Skin: normal color, warm/dry Lymphatic: no adenopathy Focused Exam Lactate Level 12/13/21 10:30: Lactic Acid Level 1.36 Lactic Acid Level Laboratory Tests Test 12/13/21 10:30 Lactic Acid Level 1.36 MMOL/L (0.50-2.00) Progress/Results/Core Measures Results/Orders Lab Results Laboratory Tests Test 12/13/21 09:37 12/13/21 09:59 12/13/21 10:30 Range/Units Urine Color YELLOW Urine Clarity CLEAR Urine pH 5.5 5-9 Urine Specific [place] >=1.030 1.016-1.022 Urine Protein NEGATIVE NEGATIVE Urine Glucose (UA) NEGATIVE NEGATIVE Urine Ketones TRACE H NEGATIVE Urine Nitrite NEGATIVE NEGATIVE Urine Bilirubin NEGATIVE NEGATIVE Urine Urobilinogen 0.2 < = 1.0 MG/DL Urine Leukocyte Esterase NEGATIVE NEGATIVE Urine RBC (Auto) NEGATIVE NEGATIVE Urine RBC NONE /HPF Urine WBC RARE /HPF Urine Squamous Epithelial Cells 5-10 /HPF Urine Crystals NONE /LPF Urine Bacteria TRACE /HPF Urine Casts NONE /LPF Urine Mucus SMALL H /LPF Urine Yeast FEW H /HPF Urine Culture Indicated YES White Blood Count 15.4 H 4.3-11.0 10^3/uL Red Blood Count 4.35 3.80-5.11 10^6/uL Hemoglobin 12.6 11.5-16.0 g/dL Hematocrit 39 35-52 % Mean Corpuscular Volume 89 80-99 fL Mean Corpuscular Hemoglobin 29 25-34 pg Mean Corpuscular Hemoglobin Concent 33 32-36 g/dL Red Cell Distribution Width 14.8 H 10.0-14.5 % Platelet Count 296 130-400 10^3/uL Mean Platelet Volume 9.1 9.0-12.2 fL Immature Granulocyte % (Auto) 1 % Neutrophils (%) (Auto) 73 42-75 % Lymphocytes (%) (Auto) 20 12-44 % Monocytes (%) (Auto) 6 0-12 % Eosinophils (%) (Auto) 0 0-10 % Basophils (%) (Auto) 0 0-10 % Neutrophils # (Auto) 11.3 H 1.8-7.8 10^3/uL Lymphocytes # (Auto) 3.1 1.0-4.0 10^3/uL Monocytes # (Auto) 0.9 0.0-1.0 10^3/uL Eosinophils # (Auto) 0.0 0.0-0.3 10^3/uL Basophils # (Auto) 0.0 0.0-0.1 10^3/uL Immature Granulocyte # (Auto) 0.1 0.0-0.1 10^3/uL Neutrophils % (Manual) 80 % Lymphocytes % (Manual) 11 % Monocytes % (Manual) 8 % Band Neutrophils 1 % Blood Morphology Comment NORMAL Sodium Level 140 135-145 MMOL/L Potassium Level 3.5 L 3.6-5.0 MMOL/L Chloride Level 101 98-107 MMOL/L Carbon Dioxide Level 29 21-32 MMOL/L Anion Gap 10 5-14 MMOL/L Blood Urea Nitrogen 16 7-18 MG/DL Creatinine 1.02 0.60-1.30 MG/DL Estimat Glomerular Filtration Rate 63 BUN/Creatinine Ratio 16 Glucose Level 280 H 70-105 MG/DL Calcium Level 8.5 8.5-10.1 MG/DL Corrected Calcium 9.0 8.5-10.1 MG/DL Total Bilirubin 0.5 0.1-1.0 MG/DL Aspartate Amino Transf (AST/SGOT) 13 5-34 U/L Alanine Aminotransferase (ALT/SGPT) 13 0-55 U/L Alkaline Phosphatase 74 40-136 U/L Total Protein 6.4 6.4-8.2 GM/DL Albumin 3.4 3.2-4.5 GM/DL Lipase 5 L 8-78 U/L Lactic Acid Level 1.36 0.50-2.00 MMOL/L Micro Results Microbiology 12/13/21 Urine Culture - Final, Complete YEAST Growth Consistent My Orders Orders - HELEN GRAY DO Lipase (12/13/21 09:26) Lactic Acid Analyzer (12/13/21 09:26) Ua Culture If Indicated (12/13/21 09:26) Comprehensive Metabolic Panel (12/13/21 09:26) Cbc With Automated Diff (12/13/21 09:26) Ondansetron Injection (Zofran Injectio (12/13/21 09:30) Ns Iv 1000 Ml (Sodium Chloride 0.9%) (12/13/21 09:30) Fentanyl Inj (Sublimaze Injection) (12/13/21 09:30) Ct Abdomen/Pelvis W (12/13/21 09:26) Iohexol Injection (Omnipaque 350 Mg/Ml 1 (12/13/21 09:45) Ns (Ivpb) (Sodium Chloride 0.9% Ivpb Bag (12/13/21 09:45) Sodium Chloride Flush (Catheter Flush Sy (12/13/21 09:45) Urine Culture (12/13/21 09:37) Manual Differential (12/13/21 09:59) Medications Given in ED Vital Signs/I&O 12/13/21 12/13/21 09:03 11:33 Temp 36.7 36.7 Pulse 116 97 Resp 20 20 B/P (MAP) 137/108 (118) 142/78 Blood Pressure Mean: 118 Diagnostic Imaging Diagonstic Imaging: CT Plain Films/CT/US/NM/MRI: abdomen, pelvis Comments [facility] [place], [place] NAME: ALAINA HERRERA [facility] REC#: [id number] PT STATUS: REG ER : 1960 PHYSICIAN: HELEN GRAY DO ADMIT DATE: 12/13/21/ER Signed Date of Exam:12/13/21 CT ABDOMEN/PELVIS W PROCEDURE: CT abdomen and pelvis with contrast. TECHNIQUE: Multiple contiguous axial images were obtained through the abdomen and pelvis after administration of intravenous contrast. Auto Exposure Controls were utilized during the CT exam to meet ALARA standards for radiation dose reduction. All CT scans use one or more of the following dose optimizing techniques: automated exposure control, MA and/or KvP adjustment based on patient size and exam type or iterative reconstruction. INDICATION: Left-sided pain. Compared with CT abdomen and pelvis 12/10/2021. FINDINGS: Unobstructed kidneys nonfocal and nonacute. Pancreas unremarkable. Liver, gallbladder, bile ducts, spleen and adrenals unremarkable. There is chronic elevation of the right hemidiaphragm with subjacent right basilar partial atelectasis. No basilar pleural fluid. Aorta is nonaneurysmal and nonacute. There is no ileus or bowel obstruction. There are few scattered sigmoidal and distal colonic diverticular changes but no findings of active or acute diverticulitis. There were no findings of appendicitis. No bowel wall thickening. No perienteric or pericolonic edema. Degenerative changes to the spine remaining greatest at the L5-S1 level where there is grade 1 degenerative retrolisthesis with moderate canal and at least moderate degrees of bi-foraminal stenosis chronic. There is no acute appearing abnormality. No ascites, abscess, hematoma or acute fluid collection. The urinary bladder normal. IMPRESSION: Noninflamed diverticulosis. Chronic thoracolumbar spondylosis, no obstructive features, inflammatory process or acute appearing abnormalities. Dictated by: Dictated on workstation # [id number] Dict: 12/13/21 1021 Trans: 12/13/21 1038 [id number] Departure Communication (Admissions) Patient is hemodynamically stable with a nonsurgical abdominal exam. CT scan is negative. Labs are reassuring exam vital signs. Discharged in stable condition with supportive care and close follow-up. Questions were sought and answered Impression Primary Impression: LUQ pain Disposition: 01 HOME, SELF-CARE Condition: Stable Departure-Patient Inst. Referrals: FLIP POLLARD DO (PCP/Family) Primary Care Physician Patient Instructions: Gastritis (DC) Add. Discharge Instructions: Please use the Carafate as needed. I recommend you start an acid medicine such as Nexium or Protonix. Use the nausea medicine as needed. Follow-up with your primary physician in the next 48 hours should your symptoms persist. Return to the emergency department if your symptoms change in any way concerning to you. All discharge instructions reviewed with patient and/or family. Voiced understanding. Scripts Ondansetron (Ondansetron Odt) 8 Mg Tab.rapdis 8 MG SL Q4H PRN for NAUSEA/VOMITING for 5 Days, #30 TAB Prov: HELEN GRAY DO 12/13/21 Sucralfate (Carafate) 1 Gram Tablet 1 GM PO TIDAC for 7 Days, #21 TAB Prov: HELEN GRAY DO 12/13/21 HELEN GRAY DO Dec 13, 2021 10:51
[2021-12-13 11:33] VITALS: BP 142/78
== END 2021-12-13 11:38 | disposition home or self-care (01) ==
LOC: EDUNIT# 08:45 → ER 08:47
DX: R10.12 Left upper quadrant pain (principal); R11.2 Nausea with vomiting, unspecified; Z28.310 Unvaccinated for COVID-19
CPT/HCPCS: 36415; 74177; 80053; 81000; 83605; 83690; 85007; 85027; 87088

== ENCOUNTER → 2022-03-14 | Outpatient (CLI) | payer MEDICARE ==
[~2022-03-14] MED LIST changes: +ALBU18HF2 INH; +BUDE10.27 INH; +DILT180C85 PO; +DULO60CA59 PO; +HYDR-3922 PO; +HYDR50CA3 PO; +IBUP-1773 PO; +INSU100I32 SC; +LOSA100T57 PO; +MONT-40 PO; +ONDA8TAB13 SL; +PANT40TA52 PO; +RAME8TAB24 PO; +RIVA20TA PO; +SEMA2PEN IJ; +SUCR1TAB36 PO
== END ==
LOC: CARD 10:40
PROVIDERS: ATTEND Nurse Practitioner Family
DX: R00.2 Palpitations (principal)
CPT/HCPCS: 93005

== ENCOUNTER 2022-03-16 16:22 | Observation (INO) | payer MEDICARE ==
[~2022-03-16] VITALS: Ht 170 cm; Wt 114.0 kg
[~2022-03-16 16:22] MED LIST changes: -ALBU18HF2 INH; -BUDE10.27 INH; -DILT180C85 PO; -DULO60CA59 PO; -HYDR-3922 PO; -HYDR50CA3 PO; -IBUP-1773 PO; -INSU100I32 SC; -LOSA100T57 PO; -MONT-40 PO; -PANT40TA52 PO; -RAME8TAB24 PO; -RIVA20TA PO; -SEMA2PEN IJ
[2022-03-16] MEDS ORDERED: APIXABAN 5 MG (ELIQUIS) TABLET PO ONE (17:00)
[2022-03-16] MEDS ORDERED: ASPIRIN 81 MG CHEW (CHILDREN'S ASA) PO ONE (17:00)
--- NOTE | 2022-03-16 17:03 | ED Cardiac General ---
History of Present Illness General Chief Complaint: Chest Pain Stated Complaint: CHEST PAIN, ABNORMAL EKG Nursing Triage Note: Patient ambulated to ER w c/o chest pain, shortness of breath, and an abnormal EKG per [facility]. Source: patient Exam Limitations: no limitations History of Present Illness Date Seen by Provider: Mar 16, 2022 Time Seen by Provider: 16:48 Initial Comments Patient is a 61-year-old female who presents to the emergency room with a chief complaint of palpitations, mild chest pain and shortness of breath. She has a history of hypertension, diabetes. Non-smoker. She has a history of A. fib/a flutter with an ablation in [place] about 6 years ago. She is currently not on anticoagulant therapy. She states she had a new patient appointment with Dr. Rocha's nurse practitioner on Monday, during the exam she auscultated tachycardia and irregularity. She had an EKG done after the appointment. She was called today and advised that her EKG was abnormal and advised to come to the ER. Patient states she did not have pain until she got into the car to come to the emergency room. She describes it as a "heaviness". It does not radiate. She is very mildly nauseous. She denies any recent fevers, chills, cough or congestion. No leg swelling. No problems with bowel or bladder. No sick contacts. She takes losartan, Norvasc and hydralazine, she cannot remember if she took her medications today. She is slightly hypertensive in the 150s over 105 range. Heart rate noted on telemetry in the 130s irregularly irregular. Room air oxygen 97%. Timing/Duration: 2-3 days Severity: moderate Location: substernal Activities at Onset: none Prior CP/Workup: other (History of A. fib/a flutter) NTG SL OIL WINTERIZER: No ASA po OIL WINTERIZER: No Associated Systoms: Chest Pain, Malaise, Shortness of Air (Mild) Allergies and Home Medications Allergies Coded Allergies: No Known Drug Allergies (Unverified , 12/03/21) Patient Home Medication List Home Medication List Reviewed: Yes Guaifenesin/Dextromethorphan (Mucinex Dm ER 1,200-60 mg Tab) 1,200 Mg-60 Mg Tbmp.12hr, 1 EACH PO BID PRN for cough Prescribed by: WM HIGGINS on 12/03/21 1530 Ondansetron (Ondansetron Odt) 8 Mg Tab.rapdis, 8 MG SL Q4H PRN for NAUSEA/VOMITING Prescribed by: HELEN GRAY MD on 12/13/21 1050 Sucralfate (Carafate) 1 Gram Tablet, 1 GM PO TIDAC Prescribed by: HELEN GRAY MD on 12/13/21 1049 Review of Systems Review of Systems Constitutional: see HPI EENTM: No Symptoms Reported Respiratory: Shortness of Air Cardiovascular: Chest Pain, Irregular Heart Rate, Palpitations Gastrointestinal: Nausea (Mild) Genitourinary: No Symptoms Reported Musculoskeletal: no symptoms reported Skin: no symptoms reported Psychiatric/Neurological: Other (fatigue) All Other Systems Reviewed Negative Unless Noted: Yes Past Bcjdavi-Yzmupv-Iyetkq Hx Past Medical History Surgery/Hospitalization HX: htn, hld, dm, hysto Surgeries: Yes Hysterectomy Respiratory: Yes Asthma Cardiac: Yes High Cholesterol, Hypertension Neurological: No Genitourinary: No Gastrointestinal: No Musculoskeletal: No Endocrine: Yes Diabetes, Non-Insulin dep HEENT: No Psychosocial: Yes Anxiety, Depression Family Medical History No Pertinent Family Hx Physical Exam Vital Signs Vital Signs - First Documented 03/16/22 16:27 Temp 35.7 Pulse 135 Resp 20 B/P (MAP) 164/104 (124) Pulse Ox 96 O2 Delivery Room Air Capillary Refill : Less Than 3 Seconds Height, Weight, BMI Height: '" Weight: lbs. oz. kg; 39.00 BMI Method: General Appearance: No Apparent Distress, WD/WN, Obese HEENT: PERRL/EOMI Neck: Normal Inspection Respiratory: Lungs Clear, Normal Breath Sounds, No Accessory Muscle Use, No Respiratory Distress Cardiovascular: Normal Peripheral Pulses, Irregularly Irregular, Tachycardia Gastrointestinal: Non Tender, Soft Extremity: Normal Capillary Refill, Normal Inspection, Normal Range of Motion, Non Tender, No Pedal Edema Neurologic/Psychiatric: Alert, Oriented x3, No Motor/Sensory Deficits, Normal Mood/Affect, multiple drum sander helper II-XII Norm as Tested Skin: Normal Color, Warm/Dry Progress/Results/Core Measures Results/Orders Lab Results Laboratory Tests Test 03/16/22 16:42 03/16/22 17:30 Range/Units Glucometer 211 H 70-110 MG/DL White Blood Count 12.5 H 4.3-11.0 10^3/uL Red Blood Count 3.96 3.80-5.11 10^6/uL Hemoglobin 11.6 11.5-16.0 g/dL Hematocrit 35 35-52 % Mean Corpuscular Volume 89 80-99 fL Mean Corpuscular Hemoglobin 29 25-34 pg Mean Corpuscular Hemoglobin Concent 33 32-36 g/dL Red Cell Distribution Width 13.9 10.0-14.5 % Platelet Count 328 130-400 10^3/uL Mean Platelet Volume 9.6 9.0-12.2 fL Immature Granulocyte % (Auto) 1 % Neutrophils (%) (Auto) 67 42-75 % Lymphocytes (%) (Auto) 25 12-44 % Monocytes (%) (Auto) 6 0-12 % Eosinophils (%) (Auto) 1 0-10 % Basophils (%) (Auto) 1 0-10 % Neutrophils # (Auto) 8.4 H 1.8-7.8 10^3/uL Lymphocytes # (Auto) 3.1 1.0-4.0 10^3/uL Monocytes # (Auto) 0.7 0.0-1.0 10^3/uL Eosinophils # (Auto) 0.2 0.0-0.3 10^3/uL Basophils # (Auto) 0.1 0.0-0.1 10^3/uL Immature Granulocyte # (Auto) 0.1 0.0-0.1 10^3/uL Prothrombin Time 13.6 12.2-14.7 SEC INR Comment 1.0 0.8-1.4 Sodium Level 141 135-145 MMOL/L Potassium Level 4.0 3.6-5.0 MMOL/L Chloride Level 105 98-107 MMOL/L Carbon Dioxide Level 25 21-32 MMOL/L Anion Gap 11 5-14 MMOL/L Blood Urea Nitrogen 21 H 7-18 MG/DL Creatinine 0.86 0.60-1.30 MG/DL Estimat Glomerular Filtration Rate 77 BUN/Creatinine Ratio 24 Glucose Level 232 H 70-105 MG/DL Calcium Level 8.7 8.5-10.1 MG/DL Corrected Calcium 9.1 8.5-10.1 MG/DL Total Bilirubin 0.4 0.1-1.0 MG/DL Aspartate Amino Transf (AST/SGOT) 15 5-34 U/L Alanine Aminotransferase (ALT/SGPT) 17 0-55 U/L Alkaline Phosphatase 101 40-136 U/L Troponin I 0.036 H <0.028 NG/ML Total Protein 6.8 6.4-8.2 GM/DL Albumin 3.5 3.2-4.5 GM/DL My Orders Orders - WM HIGGINS MD Ekg Tracing (03/16/22 16:26) Ed Iv/Invasive Line Start (03/16/22 16:50) Cbc With Automated Diff (03/16/22 16:50) Comprehensive Metabolic Panel (03/16/22 16:50) Protime With Inr (03/16/22 16:50) Troponin I Nikole (03/16/22 16:50) Chest 1 View, Ap/Pa Only (03/16/22 16:50) Apixaban Tablet (Eliquis Tablet) (03/16/22 17:00) Aspirin Chewable Tablet (Baby Aspirin Ch (03/16/22 17:00) Diltiazem Injection (Cardizem Injection) (03/16/22 17:15) Ekg Tracing (03/16/22 17:36) Medications Given in ED Current Medications Medications Dose Ordered Sig/Vane Route Start Time Stop Time Status Last Admin Dose Admin Apixaban 5 mg ONCE ONCE PO 03/16/22 17:00 03/16/22 17:01 DC 03/16/22 17:13 5 MG Aspirin 324 mg ONCE ONCE PO 03/16/22 17:00 03/16/22 17:01 DC 03/16/22 17:13 324 MG Vital Signs/I&O 03/16/22 16:27 Temp 35.7 Pulse 135 Resp 20 B/P (MAP) 164/104 (124) Pulse Ox 96 O2 Delivery Room Air Blood Pressure Mean: 124 Progress Progress Note #1: Time: 17:47 Progress Note Notified by nursing that patient converted to HR in the 60's after IV cardizem push. labs pending. Progress Note #2: Time: 18:06 Progress Note 61-year-old female history of hypertension diabetes remote A. fib. Evaluation today includes physical exam, EKG, chest x-ray. EKG shows initially A. fib with RVR in the 130s, diffuse nonspecific ST-T wave changes/T wave inversions. Chest x-ray, no acute findings. CBC, normal, comprehensive metabolic panel with hyperglycemia sugar at 200 otherwise normal. Coagulation studies PT/INR normal. Troponin: Patient with remote ablation, now in A. fib. Concern by primary care for T wave inversions on EKG 2 days ago and sent to ER today. Found in A. fib RVR. Treated with aspirin, Eliquis 5 mg. Vital signs remained stable. No objective findings of congestive failure, ST segment elevation elevation MS. Patient spontaneously converted on her own without the cardizem push. Case discussed with Dr. Fleming @ Initial ECG Impression Date: Mar 16, 2022 Initial ECG Impression Time: 16:55 Initial ECG Rate: 136 Initial ECG Rhythm: A Fib/Flutter Initial ECG Impression: Nonspecific Changes Comment ST depression in leads II and aVF 1 mm, poor R wave progression over the precordium, Q waves lead V1 and V2; artifact noted V4 V5 V6; no obvious ST segment elevation EKG : EKG Time: 17:55 Rate: 64 Rhythm: Normal Sinus Intervals FL interval 155, QRS 105, QTc 466 Comment NSSTW change with inverted T waves diffusely ; no ST elevation Diagnostic Imaging Diagonstic Imaging: Xray Plain Films/CT/US/NM/MRI: chest Comments [facility]. [place], [place] NAME: ALAINA HERRERA [facility] REC#: [id number] PT STATUS: REG ER : 1960 PHYSICIAN: WM HIGGINS MD ADMIT DATE: 03/16/22/ER Signed Date of Exam:03/16/22 CHEST 1 VIEW, AP/PA ONLY INDICATION: Chest pain and palpitations. Frontal chest obtained at 5:11 p.m. and compared to 12/10/2021. FINDINGS: There is unchanged elevation of the right hemidiaphragm. Heart and mediastinal silhouette are normal in appearance. The lungs are clear. There is no pneumothorax or pleural fluid. IMPRESSION: No acute process in the chest. Dictated by: Dictated on workstation # [id number] Dict: 03/16/22 1705 Trans: 03/16/22 1738 [id number] Interpreted by: DANO PICKENS MD Electronically signed by: DANO PICKENS MD 03/16/22 1738 Departure Communication (Admissions) Time/Spoke to Admitting Phy: 18:[address] Ortiz Time/Spoke to Consulting Phy: 18:[address] Fleming Impression Primary Impression: Atrial fibrillation with RVR Additional Impressions: Hypertension Qualified Codes: I10 - Essential (primary) hypertension Diabetes Qualified Codes: E11.59 - Type 2 diabetes mellitus with other circulatory complications Disposition: ADMITTED INPATIENT Condition: Stable Admissions Decision to Admit Reason: Admit from ER (General) Decision to Admit/Date: Mar 16, 2022 Time/Decision to Admit Time: 18:58 Departure-Patient Inst. Referrals: BRANDON ROCHA MD, RICHARD A DO (PCP/Family) Primary Care Physician Copy Copies To 1: BRANDON ROCHA MD, KATHRYN M MD Mar 16, 2022 17:02
--- NOTE | 2022-03-16 17:07 | Diagnostic Imaging Report ---
INDICATION: Chest pain and palpitations. Frontal chest obtained at 5:11 p.m. and compared to 12/10/2021. FINDINGS: There is unchanged elevation of the right hemidiaphragm. Heart and mediastinal silhouette are normal in appearance. The lungs are clear. There is no pneumothorax or pleural fluid. IMPRESSION: No acute process in the chest. Dictated by: Dictated on workstation # [id number]
[2022-03-16 17:40] LABS: BASOPHILS # (AUTO) 0.1 10^3/uL (0.0-0.1); BASOPHILS % (AUTO) 1 % (0-10); EOSINOPHILS # (AUTO) 0.2 10^3/uL (0.0-0.3); EOSINOPHILS % (AUTO) 1 % (0-10); HEMATOCRIT 35 % (35-52); HEMOGLOBIN 11.6 g/dL (11.5-16.0); LYMPHOCYTES # (AUTO) 3.1 10^3/uL (1.0-4.0); LYMPHOCYTES % (AUTO) 25 % (12-44); MEAN CORPUSCULAR HEMOGLOBIN 29 pg (25-34); MEAN CORPUSCULAR HGB CONC 33 g/dL (32-36); MEAN CORPUSCULAR VOLUME 89 fL (80-99); MEAN PLATELET VOLUME 9.6 fL (9.0-12.2); MONOCYTES # (AUTO) 0.7 10^3/uL (0.0-1.0); MONOCYTES % (AUTO) 6 % (0-12); NEUTROPHILS # (AUTO) 8.4 10^3/uL (1.8-7.8); NEUTROPHILS % (AUTO) 67 % (42-75); PLATELET COUNT 328 10^3/uL (130-400); WHITE BLOOD COUNT 12.5 10^3/uL (4.3-11.0)
[2022-03-16 17:52] LABS: ALBUMIN 3.5 GM/DL (3.2-4.5)
[2022-03-16 17:54] LABS: CALCIUM 8.7 MG/DL (8.5-10.1)
[2022-03-16 17:55] LABS: TOTAL PROTEIN 6.8 GM/DL (6.4-8.2)
[2022-03-16 17:57] LABS: BILIRUBIN,TOTAL 0.4 MG/DL (0.1-1.0)
[2022-03-16 17:59] LABS: CREATININE SERUM 0.86 MG/DL (0.60-1.30)
[2022-03-16 18:00] LABS: PROTHROMBIN TIME PATIENT 13.6 SEC (12.2-14.7)
[2022-03-16 20:15] VITALS: BP 176/78
[2022-03-16] MEDS ORDERED: ONDANSETRON 4 MG/2 ML (SDV) Z0FRAN IV PRN (20:15)
[2022-03-16] MEDS ORDERED: ACETAMINOPHEN 325 MG TABLET PO PRN (20:15)
[2022-03-16] MEDS ORDERED: ONDANSETRON 4 MG (ZOFRAN) ORAL DISSOLVE TAB PO PRN (20:15)
[2022-03-16] MEDS ORDERED: MELATONIN 3 MG TABLET PO PRN (20:15)
[2022-03-16] MEDS ORDERED: diphenhydrAMINE 50 MG/ML INJ (BENADRYL) IVP PRN (20:15)
[2022-03-16] MEDS ORDERED: diphenhydrAMINE 25 MG TAB (BENADRYL) PO PRN (20:15)
[2022-03-16] MEDS ORDERED: MILK OF MAGNESIA 400 MG/5 ML 30 ML UDC PO PRN (20:15)
[2022-03-16] MEDS ORDERED: CALCIUM CARBONATE 500 MG (TUMS) TAB.CHEW PO PRN (20:15)
[2022-03-16] MEDS ORDERED: LACTULOSE SYRUP 10GM/15ML (ENULOSE) 30ML UDC PO PRN (20:15)
[2022-03-16] MEDS ORDERED: BISACODYL 10 MG SUPP (DULCOLAX) PR PRN (20:15)
[2022-03-16] MEDS ORDERED: ANTACID SUSP 30 ML UDC (MYLANTA) PO PRN (20:15)
[2022-03-16] MEDS ORDERED: NS IV 500 ML 500 ML IV PRN (20:15)
[2022-03-16] MEDS ORDERED: polyethylene glycoL POWDER 17 GM (MIRALAX) PACK PO PRN (20:15)
[2022-03-16 20:26] VITALS: BP 164/104
[2022-03-16] MEDS ORDERED: RT-ALBUTEROL SULF 2.5 MG/3 ML PRE-MIX VIAL INH PRN (20:45)
[2022-03-16] MEDS: APIXABAN 5 MG (ELIQUIS) TABLET PO SCH (20:53)
[2022-03-16 21:00] VITALS: BP 196/90
[2022-03-16] MEDS ORDERED: MONTELUKAST 10 MG (SINGULAIR) TAB PO SCH (21:00)
[2022-03-16] MEDS ORDERED: hydrOXYzine (ATARAX) 10 MG TAB PO SCH (21:00)
[2022-03-16 22:00] VITALS: BP 172/68
[2022-03-16] MEDS: DOCUSATE SODIUM 100 MG (COLACE) CAP PO SCH (22:15)
[2022-03-16] MEDS: SENNOSIDES 8.6 MG (SENOKOT) TAB PO SCH (22:15)
[2022-03-16] MEDS: hydrALAZINE (APESOLINE) 20 MG/ML VIAL IV PRN (22:16)
[2022-03-16] MEDS: inSUlin ASPART (NovoLOG) 1 UNIT/0.01 ML (CHARGE PER UNIT) SC SCH (22:43)
[2022-03-16 23:00] VITALS: BP 170/83
[2022-03-17] VITALS (9 sets, daily range): BP systolic 126–204; BP diastolic 70–117
[2022-03-17] MEDS: hydrALAZINE (APESOLINE) 20 MG/ML VIAL IV PRN ×2 (02:18→13:44)
[2022-03-17 05:55] LABS: POTASSIUM 3.6 MMOL/L (3.6-5.0)
[2022-03-17 05:56] LABS: CALCIUM 8.5 MG/DL (8.5-10.1)
[2022-03-17 06:00] LABS: CREATININE SERUM 0.76 MG/DL (0.60-1.30)
[2022-03-17] MEDS ORDERED: KCL 20 MEQ TAB (K-DUR) PO SCH (06:00)
[2022-03-17] MEDS ORDERED: POTASSIUM CL 10MEQ/50ML IVPB 50 ML IV SCH (06:00)
[2022-03-17] MEDS ORDERED: MAGNESIUM 1 GM/100 ML IVPB 100 ML IV SCH (06:00)
[2022-03-17 06:03] LABS: MAGNESIUM 1.9 MG/DL (1.6-2.4)
[2022-03-17 06:14] LABS: BASOPHILS # (AUTO) 0.1 10^3/uL (0.0-0.1); BASOPHILS % (AUTO) 1 % (0-10); EOSINOPHILS # (AUTO) 0.3 10^3/uL (0.0-0.3); EOSINOPHILS % (AUTO) 2 % (0-10); HEMATOCRIT 33 % (35-52); HEMOGLOBIN 11.2 g/dL (11.5-16.0); LYMPHOCYTES # (AUTO) 3.2 10^3/uL (1.0-4.0); LYMPHOCYTES % (AUTO) 24 % (12-44); MEAN CORPUSCULAR HEMOGLOBIN 30 pg (25-34); MEAN CORPUSCULAR HGB CONC 34 g/dL (32-36); MEAN CORPUSCULAR VOLUME 88 fL (80-99); MEAN PLATELET VOLUME 9.5 fL (9.0-12.2); MONOCYTES # (AUTO) 0.8 10^3/uL (0.0-1.0); MONOCYTES % (AUTO) 6 % (0-12); NEUTROPHILS # (AUTO) 8.9 10^3/uL (1.8-7.8); NEUTROPHILS % (AUTO) 67 % (42-75); PLATELET COUNT 315 10^3/uL (130-400); WHITE BLOOD COUNT 13.3 10^3/uL (4.3-11.0)
[2022-03-17] MEDS: inSUlin ASPART (NovoLOG) 1 UNIT/0.01 ML (CHARGE PER UNIT) SC SCH ×2 (06:23→11:06)
[2022-03-17] MEDS ORDERED: PANTOPRAZOLE 40 MG (PROTONIX) TAB PO SCH (07:00)
[2022-03-17] MEDS ORDERED: FLUTICASONE/VILANTEROL 100 MCG 14'S (BREO) IH SCH (08:00)
--- NOTE | 2022-03-17 08:43 | Consultation-Cardiology ---
HPI-Cardiology Cardiology Consultation: Date of Consultation 03/17/22 Time Seen by a Provider: 08:15 Date of Admission 03-16-22 Attending Physician Earnest Argueta DO Admitting Physician Admitting Physician: Jenna Alejandra MD Attending Physician: Jenna Alejandra MD Consulting Physician Danelle Fleming MD HPI: Chief Complaint: A-fib with RVR Ms. Leon is a 61 yr old female who has been admitted to ICU 11 from the ED with a-fib with RVR. She reports she recently moved to the area approx 6 months ago from [place]. She states she was establishing care with a PCP yesterday and was sent to the hospital as an out pt for an EKG. She reports yesterday evening she developed palpitations, shortness of breath, nausea and mid-sternal chest discomfort which radiated to her right breast. She states the chest discomfort is worse with movement and palpation. She denies any syncope or near syncope. She reports chronic intermittent LE swelling. She reports the shortness of breath has improved and the palpitations have resolved. 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 She states she had an echo approx a year ago and was told everything was ok. Review of Systems-Cardiology Review of Systems Constitutional: No chills, No fever, No malaise Eyes: No vision change Ears/Nose/Throat: No epistaxis, No recent hearing loss Respiratory: As described under HPI Cardiovascular: As described under HPI Gastrointestinal: No constipation, No diarrhea; nausea; No vomiting Genitourinary: No dysuria, No hematuria Musculoskeletal: As describe under HPI Skin: No rash on exposed areas, No ulcerations on exposed areas Psychiatric/Neurological: No anxiety, No depression, No seizure, No focal weakness, No syncope Hematologic: No bleeding abnormalities All Other Systems Reviewed Negative Unless Noted: Yes RBY-Ykglow-Olvonb Hx Patient Social History Smoking Status: Never a Smoker Have you traveled recently?: No Alcohol Use?: No Pt feels they are or have been: No Past Medical History PMH As described under Assessment. Family Medical History Family Medical History: She reports her mother had a pacemaker and HTN. She reports her father had HTN. Allergies and Home Medications Allergies Coded Allergies: No Known Drug Allergies (Unverified , 12/03/21) Patient Home Medication List Albuterol Sulfate (Ventolin Hfa) 90 Mcg Hfa.aer.ad, 2 PUFF INH Q6H PRN for SHORTNESS OF BREATH, (Reported) Entered as Reported by: LAVELLE MCCRAY on 03/17/221049 Last Action: Reviewed Budesonide/Formoterol Fumarate (Budesonide-Formoterol 80-4.5) 80 Mcg-4.5 Mcg/Actuation Hfa.aer.ad, 2 PUFF INH BID, (Reported) Entered as Reported by: LAVELLE MCCRAY on 03/17/221049 Last Action: Reviewed Diltiazem HCl (Diltiazem 24Hr ER) 180 Mg Cap.er.24h, 180 MG PO DAILY Prescribed by: JENNA ALEJANDRA on 03/17/22 120 Duloxetine HCl (Duloxetine HCl) 60 Mg Capsule.dr, 60 MG PO DAILY, (Reported) Entered as Reported by: LAVELLE MCCRAY on 03/17/221049 Last Action: Reviewed Hydralazine HCl (Hydralazine HCl) 10 Mg Tablet, 10 MG PO BID, (Reported) Entered as Reported by: LAVELLE MCCRAY on 03/17/221049 Last Action: Reviewed Hydroxyzine Pamoate (Hydroxyzine Pamoate) 50 Mg Capsule, 50 MG PO HS, (Reported) Entered as Reported by: LAVELLE MCCRAY on 03/17/221049 Last Action: Reviewed Ibuprofen (Ibuprofen) 600 Mg Tablet, 600 MG PO BID, (Reported) Entered as Reported by: LAVELLE MCCRAY on 03/17/221049 Last Action: Reviewed Insulin Degludec (Tresiba Flextouch U-100) 100 Unit/Ml (3 Ml) Insuln.pen, 40 UNITS SC HS, (Reported) Entered as Reported by: LAVELLE MCCRAY on 03/17/221049 Last Action: Reviewed Losartan Potassium (Losartan Potassium) 100 Mg Tablet, 100 MG PO DAILY, (Reported) Entered as Reported by: LAVELLE MCCRAY on 03/17/221049 Last Action: Reviewed Montelukast Sodium (Montelukast Sodium) 10 Mg Tablet, 10 MG PO HS, (Reported) Entered as Reported by: LAVELLE MCCRAY on 03/17/221049 Last Action: Reviewed Pantoprazole Sodium (Pantoprazole Sodium) 40 Mg Tablet.dr, 40 MG PO DAILY PRN for HEARTBURN, (Reported) Entered as Reported by: LAVELLE MCCRAY on 03/17/22 105 Last Action: Reviewed Ramelteon (Ramelteon) 8 Mg Tablet, 8 MG PO HS, (Reported) Entered as Reported by: LAVELLE MCCRAY on 03/17/22 105 Last Action: Reviewed Rivaroxaban (Xarelto) 20 Mg Tablet, 20 MG PO DAILY Prescribed by: JENNA ALEJANDRA on 03/17/22 1209 Semaglutide (Ozempic) 2 Mg/0.75 Ml (8 Mg/3 Ml) Pen.injctr, 2 MG IJ FRI, (Reported) Entered as Reported by: LAVELLE MCCRAY on 03/17/22 105 Last Action: Reviewed Discontinued Medications Guaifenesin/Dextromethorphan (Mucinex Dm ER 1,200-60 mg Tab) 1,200 Mg-60 Mg Tbmp.12hr, 1 EACH PO BID PRN for cough Discontinued Reason: No Longer Taking Prescribed by: WM HIGGINS on 12/03/21 1530 Last Action: Discontinued Ondansetron (Ondansetron Odt) 8 Mg Tab.rapdis, 8 MG SL Q4H PRN for NAUSEA/VOMITI NG Discontinued Reason: No Longer Taking Prescribed by: HELEN GRAY MD on 12/13/21 105 Last Action: Discontinued Sucralfate (Carafate) 1 Gram Tablet, 1 GM PO TIDAC Discontinued Reason: No Longer Taking Prescribed by: HELEN GRAY MD on 12/13/21 1049 Last Action: Discontinued Physical Exam-Cardiology Physical Exam Vital Signs/I&O Capillary Refill : Less Than 3 Seconds Constitutional: AAO x 3, well-developed, well-nourished HEENT: PERRL, hearing is well preserved, oral hygience is good Neck: No carotid bruit; carotid pulses are 2 + bilaterally Respiratory: No accessory muscle use, No respiratory distress; chest expansion is symmetric, chest is bilaterally symmetric, lungs clear to auscultation Cardiovascular: irregularly irregular; No JVD; S1 and S2 Gastrointestinal: No tender; soft, round, audible bowel sounds Extremities: no lower extremity edema bilateral Neurologic/Psychiatric: grossly intact (moves all extremities) Skin: No rash on exposed areas, No ulcerations on exposed areas Data Review Labs Radiology NAME: ALAINA LEON MED REC#: [id number] PT STATUS: REG ER : 1960 PHYSICIAN: WM HIGGINS MD ADMIT DATE: 03/16/22/ER Signed Date of Exam:03/16/22 CHEST 1 VIEW, AP/PA ONLY INDICATION: Chest pain and palpitations. Frontal chest obtained at 5:11 p.m. and compared to 12/10/2021. FINDINGS: There is unchanged elevation of the right hemidiaphragm. Heart and mediastinal silhouette are normal in appearance. The lungs are clear. There is no pneumothorax or pleural fluid. IMPRESSION: No acute process in the chest. Dictated by: Dictated on workstation # [id number] Dict: 03/16/221704 Trans: 03/16/221737 [id number] Interpreted by: DANO PICKENS MD Electronically signed by: DANO PICKENS MD 03/16/22 1738 A/P-Cardiology Assessment/Admission Diagnosis A-fib with RVR - converted to SR, but continues to have intermittent episodes of a-fib with a controlled rate - reports h/o ablation in [place], [place] appro 6 yrs ago - she has been off OAC since her ablation Minimally elevated troponin - likely Type 2 MA secondary to a-fib with RVR - reports stress test in [place] prior to ablation which she reports as normal - reports echocardiogram in [place] approx a year ago which she reports she was told was normal Chest discomfort of undetermined etiology - by description seems musculoskeletal in nature (ACW discomfort with palpation and movement) HTN - multi-drug regimen per pt report - Losartan, Hydralazine, Norvasc - reports intolerant to BB d/t fatigue, dizziness and bradycardia DM - insulin tx GERD Asthma Suspected sleep apnea - advise sleep studies as an out pt Discussion and Recomendations A-fib with RVR at time of admission - converted to SR, but has continued to have episodes of a-fib with controlled rate - rate control with Cardizem CD - OAC started with Eliquis Echocardiogram today Likely Type 2 MA secondary to a-fib with RVR ACW discomfort, by exam and history appears musculoskeletal in nature D/t h/o and risk factors we do advise that MPI be done, however, she does not wish to stay in the hospital to have this done HTN - restart home medication regimen REPORTS INTOLERANT TO BB d/t fatigue and bradycardia Monitor lab Replace electrolytes as indicated Suspected sleep apnea - advise sleep studies as an out pt Further recs will be based on her hospital course Attempt to get records from [place] We would like to thank medical services for this consult Clinical Quality Measures AMI/AHF: ASA po Prior to arrival: CAROL ANN Dexter Mar 17, 2022 08:43
[2022-03-17] MEDS ORDERED: KCL 20 MEQ TAB (K-DUR) PO ONE (09:30)
[2022-03-17] MEDS: APIXABAN 5 MG (ELIQUIS) TABLET PO SCH (09:31)
[2022-03-17] MEDS: SENNOSIDES 8.6 MG (SENOKOT) TAB PO SCH (09:32)
[2022-03-17] MEDS: DOCUSATE SODIUM 100 MG (COLACE) CAP PO SCH (09:32)
[2022-03-17] MEDS ORDERED: KCL 20 MEQ TAB (K-DUR) PO NR (10:00)
[2022-03-17] MEDS ORDERED: HYDR-3922 PO (10:50)
[2022-03-17] MEDS ORDERED: IBUP-1773 PO (10:50)
[2022-03-17] MEDS ORDERED: RAME8TAB24 PO (10:50)
[2022-03-17] MEDS ORDERED: LOSA100T57 PO (10:50)
[2022-03-17] MEDS ORDERED: ALBU18HF2 INH (10:50)
[2022-03-17] MEDS ORDERED: MONT-40 PO (10:50)
[2022-03-17] MEDS ORDERED: BUDE10.27 INH (10:50)
[2022-03-17] MEDS ORDERED: SEMA2PEN IJ (10:50)
[2022-03-17] MEDS ORDERED: PANT40TA52 PO (10:50)
[2022-03-17] MEDS ORDERED: DULO60CA59 PO (10:50)
[2022-03-17] MEDS ORDERED: HYDR50CA3 PO (10:50)
[2022-03-17] MEDS ORDERED: INSU100I32 SC (10:50)
[2022-03-17] MEDS ORDERED: IBUPROFEN 600 MG (MOTRIN) TAB PO NR (11:30)
[2022-03-17] MEDS ORDERED: DILT180C85 PO (12:09)
[2022-03-17] MEDS ORDERED: RIVA20TA PO (12:09)
--- NOTE | 2022-03-17 13:23 | Consultation-Cardiology ---
HPI-Cardiology Cardiology Consultation: Date of Consultation 03/17/22 Time Seen by a Provider: 09:10 Date of Admission Attending Physician Earnest Argueta DO Admitting Physician Admitting Physician: Jenna Alejandra MD Attending Physician: Jenna Alejandra MD Consulting Physician JIMMY GE MD, MA, FACP, FACC, [facility], CCDS HPI: Chief Complaint: Reason for Card consult: PA-fib with RVR Ms. Leon is a 61 yr old female who has been admitted to ICU 11 from the ED with a-fib with RVR. She reports she recently moved to the area approx 6 months ago from [place]. She states she was establishing care with a PCP yesterday and was sent to the hospital as an out pt for an EKG. She reports yesterday evening she developed palpitations, shortness of breath, nausea and mid-sternal chest discomfort which radiated to her right breast. She states the chest discomfort is worse with movement and palpation. She denies any syncope or near syncope. She reports chronic intermittent LE swelling. She reports the shortness of breath has improved and the palpitations have resolved. 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 She states she had an echo approx a year ago and was told everything was ok. Review of Systems-Cardiology Review of Systems Constitutional: No chills, No fever, No malaise Eyes: No vision change Ears/Nose/Throat: No epistaxis, No recent hearing loss Respiratory: As described under HPI Cardiovascular: As described under HPI Gastrointestinal: No constipation, No diarrhea; nausea; No vomiting Genitourinary: No dysuria, No hematuria Musculoskeletal: As describe under HPI Skin: No rash on exposed areas, No ulcerations on exposed areas Psychiatric/Neurological: No anxiety, No depression, No seizure, No focal weakness, No syncope Hematologic: No bleeding abnormalities All Other Systems Reviewed Negative Unless Noted: Yes SRR-Mnptgu-Vycrdz Hx Patient Social History Smoking Status: Never a Smoker Have you traveled recently?: No Alcohol Use?: No Pt feels they are or have been: No Past Medical History PMH As described under Assessment. Family Medical History Family Medical History: She reports her mother had a pacemaker and HTN. She reports her father had HTN. Allergies and Home Medications Allergies Coded Allergies: No Known Drug Allergies (Unverified , 12/03/21) Patient Home Medication List Home Medication List Reviewed: Yes Albuterol Sulfate (Ventolin Hfa) 90 Mcg Hfa.aer.ad, 2 PUFF INH Q6H PRN for SHORTNESS OF BREATH, (Reported) Entered as Reported by: LAVELLE MCCRAY on 03/17/221049 Last Action: Reviewed Budesonide/Formoterol Fumarate (Budesonide-Formoterol 80-4.5) 80 Mcg-4.5 Mcg/Actuation Hfa.aer.ad, 2 PUFF INH BID, (Reported) Entered as Reported by: LAVELLE MCCRAY on 03/17/221049 Last Action: Reviewed Diltiazem HCl (Diltiazem 24Hr ER) 180 Mg Cap.er.24h, 180 MG PO DAILY Prescribed by: JENNA ALEJANDRA on 03/17/22 120 Duloxetine HCl (Duloxetine HCl) 60 Mg Capsule.dr, 60 MG PO DAILY, (Reported) Entered as Reported by: LAVELLE MCCRAY on 03/17/221049 Last Action: Reviewed Hydralazine HCl (Hydralazine HCl) 10 Mg Tablet, 10 MG PO BID, (Reported) Entered as Reported by: LAVELLE MCCRAY on 03/17/221049 Last Action: Reviewed Hydroxyzine Pamoate (Hydroxyzine Pamoate) 50 Mg Capsule, 50 MG PO HS, (Reported) Entered as Reported by: LAVELLE MCCRAY on 03/17/221049 Last Action: Reviewed Ibuprofen (Ibuprofen) 600 Mg Tablet, 600 MG PO BID, (Reported) Entered as Reported by: LAVELLE MCCRAY on 03/17/221049 Last Action: Reviewed Insulin Degludec (Tresiba Flextouch U-100) 100 Unit/Ml (3 Ml) Insuln.pen, 40 UNITS SC HS, (Reported) Entered as Reported by: LAVELLE MCCRAY on 03/17/221049 Last Action: Reviewed Losartan Potassium (Losartan Potassium) 100 Mg Tablet, 100 MG PO DAILY, (Reported) Entered as Reported by: LAVELLE MCCRAY on 03/17/221049 Last Action: Reviewed Montelukast Sodium (Montelukast Sodium) 10 Mg Tablet, 10 MG PO HS, (Reported) Entered as Reported by: LAVELLE MCCRAY on 1/19/23 1050 Last Action: Reviewed Pantoprazole Sodium (Pantoprazole Sodium) 40 Mg Tablet.dr, 40 MG PO DAILY PRN for HEARTBURN, (Reported) Entered as Reported by: LAVELLE MCCRAY on 03/17/22 105 Last Action: Reviewed Ramelteon (Ramelteon) 8 Mg Tablet, 8 MG PO HS, (Reported) Entered as Reported by: LAVELLE MCCRAY on 03/17/22 105 Last Action: Reviewed Rivaroxaban (Xarelto) 20 Mg Tablet, 20 MG PO DAILY Prescribed by: JENNA ALEJANDRA on 03/17/22 1209 Semaglutide (Ozempic) 2 Mg/0.75 Ml (8 Mg/3 Ml) Pen.injctr, 2 MG IJ FRI, (R eported) Entered as Reported by: LAVELLE MCCRAY on 03/17/22 105 Last Action: Reviewed Discontinued Medications Guaifenesin/Dextromethorphan (Mucinex Dm ER 1,200-60 mg Tab) 1,200 Mg-60 Mg Tbmp.12hr, 1 EACH PO BID PRN for cough Discontinued Reason: No Longer Taking Prescribed by: WM HIGGINS on 12/03/21 1530 Last Action: Discontinued Ondansetron (Ondansetron Odt) 8 Mg Tab.rapdis, 8 MG SL Q4H PRN for NAUSEA/VOMITING Discontinued Reason: No Longer Taking Prescribed by: HELEN GRAY MD on 12/13/21 1050 Last Action: Discontinued Sucralfate (Carafate) 1 Gram Tablet, 1 GM PO TIDAC Discontinued Reason: No Longer Taking Prescribed by: HELEN GRAY MD on 12/13/21 1049 Last Action: Discontinued Physical Exam-Cardiology Physical Exam Vital Signs/I&O 03/17/22 03/17/22 03/17/22 03/17/22 02:00 03:00 04:00 07:00 Pulse 88 98 82 80 Resp 14 17 20 B/P (MAP) 162/77 (105) 152/70 (97) 126/117 (120) Pulse Ox 96 95 95 O2 Delivery Room Air Room Air Room Air 03/17/22 03/17/22 03/17/22 08:00 08:00 12:00 Temp 36.1 36.4 Pulse 72 75 Resp 18 18 B/P (MAP) 163/90 (114) 183/91 (121) Pulse Ox 95 95 94 O2 Delivery Room Air Room Air Room Air 03/17/22 00:00 Intake Total 100 ml Balance 100 ml Capillary Refill : Less Than 3 Seconds Constitutional: AAO x 3, well-developed, well-nourished HEENT: PERRL, hearing is well preserved, oral hygience is good Neck: No carotid bruit; carotid pulses are 2 + bilaterally Respiratory: No accessory muscle use, No respiratory distress; chest expansion is symmetric, chest is bilaterally symmetric, lungs clear to auscultation Cardiovascular: irregularly irregular; No JVD; S1 and S2 Gastrointestinal: No tender; soft, round, audible bowel sounds Extremities: no lower extremity edema bilateral Neurologic/Psychiatric: grossly intact (moves all extremities) Skin: No rash on exposed areas, No ulcerations on exposed areas Data Review Labs Laboratory Tests 03/16/22 16:42: Glucometer 211H 03/16/22 17:30: White Blood Count 12.5H, Red Blood Count 3.96, Hemoglobin 11.6, Hematocrit 35, Mean Corpuscular Volume 89, Mean Corpuscular Hemoglobin 29, Mean Corpuscular Hemoglobin Concent 33, Red Cell Distribution Width 13.9, Platelet Count 328, Mean Platelet Volume 9.6, Immature Granulocyte % (Auto) 1, Neutrophils (%) (Auto) 67, Lymphocytes (%) (Auto) 25, Monocytes (%) (Auto) 6, Eosinophils (%) (Auto) 1, Basophils (%) (Auto) 1, Neutrophils # (Auto) 8.4H, Lymphocytes # (Auto) 3.1, Monocytes # (Auto) 0.7, Eosinophils # (Auto) 0.2, Basophils # (Auto) 0.1, Immature Granulocyte # (Auto) 0.1, Prothrombin Time 13.6, INR Comment 1.0, Sodium Level 141, Potassium Level 4.0, Chloride Level 105, Carbon Dioxide Level 25, Anion Gap 11, Blood Urea Nitrogen 21H, Creatinine 0.86, Estimat Glomerular Filtration Rate 77, BUN/Creatinine Ratio 24, Glucose Level 232H, Calcium Level 8.7, Corrected Calcium 9.1, Total Bilirubin 0.4, Aspartate Amino Transf (AST/SGOT) 15, Alanine Aminotransferase (ALT/SGPT) 17, Alkaline Phosphatase 101, Troponin I 0.036H, Total Protein 6.8, Albumin 3.5 03/16/22 20:40: Troponin I 0.047H 03/16/22 22:24: Glucometer 187H 03/17/22 04:56: Sodium Level 142, Potassium Level 3.6, Chloride Level 108H, Carbon Dioxide Level 21, Anion Gap 13, Blood Urea Nitrogen 20H, Creatinine 0.76, Estimat Glomerular Filtration Rate 90, BUN/Creatinine Ratio 26, Glucose Level 152H, Calcium Level 8.5, Magnesium Level 1.9, Troponin I 0.042H 03/17/22 06:00: White Blood Count 13.3H, Red Blood Count 3.78L, Hemoglobin 11.2L, Hematocrit 33L , Mean Corpuscular Volume 88, Mean Corpuscular Hemoglobin 30, Mean Corpuscular Hemoglobin Concent 34, Red Cell Distribution Width 14.1, Platelet Count 315, Me an Platelet Volume 9.5, Immature Granulocyte % (Auto) 0, Neutrophils (%) (Auto) 67, Lymphocytes (%) (Auto) 24, Monocytes (%) (Auto) 6, Eosinophils (%) (Auto) 2, Basophils (%) (Auto) 1, Neutrophils # (Auto) 8.9H, Lymphocytes # (Auto) 3.2, Monocytes # (Auto) 0.8, Eosinophils # (Auto) 0.3, Basophils # (Auto) 0.1, Immature Granulocyte # (Auto) 0.1 03/17/22 10:25: Glucometer 145H A/P-Cardiology Assessment/Admission Diagnosis A-fib with RVR - converted to SR, but continues to have intermittent episodes of a-fib with a controlled rate - reports h/o ablation in [place], [place] appro 6 yrs ago - she has been off OAC since her ablation Minimally elevated troponin - likely Type 2 CO secondary to a-fib with RVR - reports stress test in [place] prior to ablation which she reports as normal - Echo 03/17/22: mod conc LVH, LVEF 60-65%, mild MAC, PASP 25-30 mmHg Chest discomfort, non-cardiac - musculoskeletal by description and ACW discomfort with palpation and movement HTN - multi-drug regimen per pt report - Losartan, Hydralazine, Norvasc - reports intolerant to BB d/t fatigue, dizziness and bradycardia DM - insulin tx GERD Asthma Suspected sleep apnea - advise sleep studies as an out pt Discussion and Recomendations * There is no clinical evidence of ACS * PAF is under control after addition of long-acting dilt. Has episodes with controlled vent response * OAC has been initiated for stroke prophylaxis * She wishes to go home * Discussed with Dr Alejandra. Outpt f/u advised * D/t h/o and risk factors we do advise that MPI be done, however, she does not wish to stay in the hospital to have this done * Suspected sleep apnea - advise sleep studies as an out pt Clinical Quality Measures AMI/AHF: ASA po Prior to arrival: JIMMY Motta MD FACP FACC CCDS Mar 17, 2022 13:23
--- NOTE | 2022-03-17 20:54 | Short Stay Summary-Hospitalist ---
History of Present Illness HPI/Chief Complaint Saba Leon is a 61 year old female who was admitted with atrial fibrillation with rapid ventricular response. She reports palpitations. She has also had chest discomfort. She denies shortness of breath. She denies nausea and vomiting. She denies diaphoresis. Source: patient Exam Limitations: no limitations Date Seen 03/17/22 Time Seen by a Provider: 09:50 Attending Physician Earnest Argueta DO PCP Admitting Physician: Vilma Ortiz MD Attending Physician: Vilma Ortiz MD Referring Physician Date of Admission Mar 16, 2022 at 19:01 Home Medications & Allergies Home Medications Reviewed patient Home Medication Reconciliation performed by pharmacy medication reconciliations operator technician and/or nursing. Patients Allergies have been reviewed. Allergies Allergies Coded Allergies No Known Drug Allergies (Pifuftixvl62/7/22) Past Lgtjvvk-Bsqjvr-Elktar Hx Patient Social History Tobacco Use?: No Smoking Status: Never a Smoker Use of E-Cig and/or Vaping dev: No Substance use?: No Alcohol Use?: No Alcohol Frequency: Once in a while Pt feels they are or have been: No Immunizations Up To Date Tetanus Booster (TDap): More Than 5 Years Current Status status: No Advance Directives: No Communicates: Verbally Primary Language: American Preferred Spoken Language: American Is interpretation needed?: No Implanted or Applied Medical D: None Past Medical History Surgeries: Hysterectomy Asthma High Cholesterol, Hypertension Diabetes, Non-Insulin dep Anxiety, Depression Family Medical History No Pertinent Family Hx Review of Systems Constitutional: no symptoms reported EENTM: no symptoms reported Respiratory: no symptoms reported Cardiovascular: chest pain, palpitations Gastrointestinal: no symptoms reported Physical Exam Physical Exam Vital Signs Vital Signs - First Documented 03/16/22 03/16/22 16:27 20:26 Temp 35.7 Pulse 135 Resp 20 B/P (MAP) 164/104 (124) Pulse Ox 96 O2 Delivery Room Air FiO2 21 Capillary Refill : Less Than 3 Seconds Height, Weight, BMI Height: '" Weight: lbs. oz. kg; 39.44 BMI Method: General Appearance: No Apparent Distress, WD/WN, Obese HEENT: PERRL/EOMI, Pharynx Normal Neck: Normal Inspection, Supple Respiratory: Lungs Clear, Normal Breath Sounds, No Accessory Muscle Use, No Respiratory Distress Cardiovascular: Normal Peripheral Pulses, Irregularly Irregular, Tachycardia Gastrointestinal: Normal Bowel Sounds, Non Tender, Soft Extremity: Normal Inspection, Non Tender, No Pedal Edema Neurologic/Psychiatric: Alert, Oriented x3, No Motor/Sensory Deficits, Normal Mood/Affect Skin: Normal Color, Warm/Dry Results Results/Procedures Labs Laboratory Tests 03/16/22 17:30 03/17/22 04:56 03/17/22 06:00 Patient resulted labs reviewed. Short Stay Diagnosis Discharge Diagnosis-Short Stay Admission Diagnosis AFib with RVR Final Discharge Diagnosis AFib with RVR Conclusion Plan AFib with RVR Rate controlled Begin Cardizem Begin Xarelto NSTEMI Type II due to tachycardia No evidence of ACS HTN T2DM Obesity Continue home meds Diagnosis/Problems Diagnosis/Problems (1) Atrial fibrillation with RVR Status: Acute (2) Elevated troponin Status: Acute (3) Hypertension Status: Acute Qualifiers: Qualified Codes: I10 - Essential (primary) hypertension (4) Diabetes Status: Acute Qualifiers: Qualified Codes: E11.59 - Type 2 diabetes mellitus with other circulatory complications Clinical Quality Measures AMI/AHF: ASA po Prior to arrival: VILMA Barfield MD Mar 17, 2022 20:54
== END 2022-03-17 14:07 | disposition home or self-care (01) ==
LOC: EDUNIT# 16:22 → ER 16:23 → ICU 19:01
PROVIDERS: ADMIT Internal Medicine; ATTEND Internal Medicine
DX: I48.20 Chronic atrial fibrillation, unspecified (principal); I10 Essential (primary) hypertension; E11.9 Type 2 diabetes mellitus without complications; R07.89 Other chest pain; R77.8 Other specified abnormalities of plasma proteins; I21.4 Non-ST elevation (NSTEMI) myocardial infarction; E66.9 Obesity, unspecified; K21.9 Gastro-esophageal reflux disease without esophagitis; J45.909 Unspecified asthma, uncomplicated; Z68.39 Body mass index [BMI] 39.0-39.9, adult; Z79.4 Long term (current) use of insulin; Z28.310 Unvaccinated for COVID-19
CPT/HCPCS: 71045; 80048; 80053; 82947 ×2; 83735; 84484 ×2; 85025 ×2; 85610; 93005; 96375; 96376; 99283; C8929; G0378; 36415; 93306

== ENCOUNTER → 2022-05-03 | Outpatient (CLI) | payer MEDICARE ==
[~2022-05-03] VITALS: Ht 170 cm; Wt 113.0 kg
[~2022-05-03] MED LIST changes: +ALBU18HF2 INH; +BUDE10.27 INH; +CATHETER FLUSH 10 ML SYR IVP PRN; +DILT180C85 PO; +DULO60CA59 PO; +HYDR-3922 PO; +HYDR50CA3 PO; +IBUP-1773 PO; +INSU100I32 SC; +LOSA100T57 PO; +MONT-40 PO; +PANT40TA52 PO; +RAME8TAB24 PO; +REGADENOSON 0.4 MG/5 ML SYR (LEXISCAN) IV ONE; +RIVA20TA PO; +SEMA2PEN IJ
[2022-05-03 13:23] VITALS: BP 157/86
--- NOTE | 2022-05-04 15:44 | STRESS TEST ---
DATE OF SERVICE: 05/03/2022 RESTING AND POST REGADENOSON TECHNETIUM-99M TETROFOSMIN SPECT CT IMAGING ORDERING PHYSICIAN: Dr. Fleming. PRIMARY PHYSICIAN: Dr. Argueta. CLINICAL DIAGNOSIS: Chest discomfort. Baseline images were carried out after injection of 10.66 mCi technetium-99m tetrofosmin. This was followed by 0.4 mg regadenoson and 29.4 mCi of technetium-99m tetrofosmin for stress imaging. The electrocardiogram showed sinus rhythm with nonspecific T-wave abnormality. This did not change significantly with regadenoson infusion. The patient noted midsternal chest discomfort following regadenoson infusion, which resolved in a few minutes. Review of images at rest and following stress indicate inferolateral perfusion defect that appears transient. Gated images show normal global left ventricular systolic function with normal regional wall motion. Left ventricular ejection fraction is calculated to be 74%. SDS is 7. CONCLUSIONS: 1. This study is indicative of a small to moderate amount of inferolateral ischemia (SDS 7). 2. Normal regional wall motion. 3. Normal global left ventricular systolic function with a calculated ejection fraction of 74%. Job ID: [id number] DocumentID: [id number] Dictated Date: 05/04/2022 12:42:56 Outbound Supervisor Date: 05/04/2022 15:41:00 Dictated By: JIMMY FLEMING MD; INOCENTE; FACP; FACC;
== END ==
LOC: CARD 11:18
PROVIDERS: ATTEND Internal Medicine Cardiovascular Disease
DX: R07.89 Other chest pain (principal)
CPT/HCPCS: 78452; 93017; A9502

== ENCOUNTER 2022-05-04 12:33 | Outpatient (CLI) | payer MEDICARE ==
[~2022-05-04 12:33] MED LIST changes: -CATHETER FLUSH 10 ML SYR IVP PRN; -REGADENOSON 0.4 MG/5 ML SYR (LEXISCAN) IV ONE
== END 2022-05-04 12:55 ==
LOC: SLEEP 12:33
PROVIDERS: ATTEND Nurse Practitioner Family
DX: G47.33 Obstructive sleep apnea (adult) (pediatric) (principal); G47.10 Hypersomnia, unspecified; R06.83 Snoring; I10 Essential (primary) hypertension
CPT/HCPCS: G0399

== ENCOUNTER 2022-05-17 09:15 | Day surgery (SDC) | payer MEDICARE ==
[~2022-05-17] VITALS: Ht 170.2 cm; Wt 111.9 kg
[2022-05-17 09:54] VITALS: BP 141/68
[2022-05-17] MEDS ORDERED: LIDOCAINE 1% INJ 20 ML VIAL ONE (10:07)
[2022-05-17] MEDS ORDERED: LIDOCAINE 1% INJ 20 ML VIAL INJ ONE (11:15)
--- NOTE | 2022-05-17 17:22 | OPERATIVE REPORT ---
DATE OF SERVICE: 05/17/2022 PREOPERATIVE DIAGNOSIS: Palpitations. POSTOPERATIVE DIAGNOSIS: Palpitations. PROCEDURE: Implantable loop recorder implantation. INDICATIONS: The patient is a 61-year-old lady who has a history of paroxysmal atrial fibrillation and has had atrial fibrillation ablation and is having recurrent palpitations that are relatively infrequent. Implantable loop recorder implantation was carried out today after having obtained an informed consent. DESCRIPTION OF PROCEDURE: [facility] The right prepectoral area was prepared and draped in the usual sterile fashion. A 1% lidocaine was used for local anesthesia. The tools provided: The Medtronic LINQ II device were used to make a subcutaneous pocket anterior to the fourth intercostal space into which the device was placed and the wound edges were closed using Dermabond and Steri-Strips. The serial number of the devices are [id number]. Job ID: [id number] DocumentID: [id number] Dictated Date: 05/17/2022 10:51:35 Rfid Developer Date: 05/17/2022 17:19:00 Dictated By: JIMMY GE MD; INOCENTE; FACP; FACC;
== END 2022-05-17 11:04 | disposition home or self-care (01) ==
LOC: CATH 09:15
PROVIDERS: ATTEND Internal Medicine Cardiovascular Disease
DX: R00.2 Palpitations (principal); I48.0 Paroxysmal atrial fibrillation; I10 Essential (primary) hypertension; R07.89 Other chest pain; E11.9 Type 2 diabetes mellitus without complications; K21.9 Gastro-esophageal reflux disease without esophagitis; J45.909 Unspecified asthma, uncomplicated; Z98.890 Other specified postprocedural states; Z79.01 Long term (current) use of anticoagulants; Z79.4 Long term (current) use of insulin; Z79.85 Long-term (current) use of injectable non-insulin antidiabetic drugs; Z79.899 Other long term (current) drug therapy; Z28.310 Unvaccinated for COVID-19
CPT/HCPCS: 33285; C1764

== ENCOUNTER 2022-05-24 07:09 | Day surgery (SDC) | payer MEDICARE ==
[2022-05-24] VITALS (28 sets, daily range): BP systolic 135–177; BP diastolic 61–99
[~2022-05-24] VITALS: Ht 170.2 cm; Wt 111.0 kg
[2022-05-24] MEDS ORDERED: NS IV 1000 ML 1,000 ML ONE (07:15)
[2022-05-24] MEDS ORDERED: HEParin (CATH LAB) 2,000 ML IV ONE (07:15)
[2022-05-24] MEDS ORDERED: NS IV 1000 ML 1,000 ML IV SCH (07:15)
[2022-05-24] MEDS ORDERED: LIDOCAINE 1% INJ 20 ML VIAL ONE (07:15)
[2022-05-24 07:46] LABS: HEMATOCRIT 38 % (35-52); HEMOGLOBIN 12.3 g/dL (11.5-16.0); MEAN CORPUSCULAR HEMOGLOBIN 28 pg (25-34); MEAN CORPUSCULAR HGB CONC 32 g/dL (32-36); MEAN CORPUSCULAR VOLUME 88 fL (80-99); MEAN PLATELET VOLUME 9.5 fL (9.0-12.2); PLATELET COUNT 371 10^3/uL (130-400); WHITE BLOOD COUNT 13.4 10^3/uL (4.3-11.0)
[2022-05-24] MEDS ORDERED: MIDAZOLAM 5 MG/5 ML (VERSED) VIAL ONE (07:57)
[2022-05-24] MEDS ORDERED: fentaNYL INJ 100 MCG/2 ML AMP ONE (07:57)
[2022-05-24] MEDS ORDERED: SENN8.6T62 PO (08:12)
[2022-05-24] MEDS ORDERED: GABA300C PO (08:12)
[2022-05-24] MEDS ORDERED: DILT300C49 PO (08:12)
[2022-05-24] MEDS ORDERED: SENN-272 PO (08:12)
[2022-05-24] MEDS ORDERED: ESCI-2 PO (08:12)
[2022-05-24] MEDS ORDERED: TIRZ5PEN SQ (08:12)
[2022-05-24] MEDS ORDERED: IRBE300T17 PO (08:12)
[2022-05-24] MEDS ORDERED: RIVA20TA PO (08:12)
[2022-05-24 08:13] LABS: ALBUMIN 3.7 GM/DL (3.2-4.5); BILIRUBIN,TOTAL 0.3 MG/DL (0.1-1.0); CREATININE SERUM 0.97 MG/DL (0.60-1.30); POTASSIUM 3.4 MMOL/L (3.6-5.0); TOTAL PROTEIN 6.8 GM/DL (6.4-8.2)
[2022-05-24 08:20] LABS: INR 1.3 (0.8-1.4); PROTHROMBIN TIME PATIENT 16.4 SEC (12.2-14.7)
[2022-05-24] MEDS ORDERED: VERAPAMIL 5 MG/2 ML (CALAN) VIAL IV ONE (08:48)
[2022-05-24] MEDS ORDERED: NITRO DRIP 25000 MCG/D5W 250 ML IV ONE (08:48)
[2022-05-24] MEDS ORDERED: HEParin 1000 UNIT/ML (10ML VIAL) FOR BOLUS ONE (08:48)
[2022-05-24] MEDS ORDERED: EPTIFIBATIDE BOLUS 20 ML IV ONE (09:36)
[2022-05-24] MEDS ORDERED: diphenhydrAMINE 50 MG/ML INJ (BENADRYL) ONE (09:39)
[2022-05-24] MEDS ORDERED: CLOPIDOGREL 300 MG (PLAVIX) TABLET PO ONE (09:58)
[2022-05-24] MEDS ORDERED: ASPIRIN 81 MG CHEW (CHILDREN'S ASA) ONE (09:58)
--- NOTE | 2022-05-24 09:58 | Cardiac Procedure Note-CS/ASA ---
Pre-Procedure Note Pre-Op Procedure Note Date of Available H&P: May 18, 2022 Date H&P Reviewed: May 24, 2022 Time H&P Reviewed: 08:30 History & Physical: H&P Reviewed, No changes noted Moderate Sedation PreProcedure ASA Score 3 Airway Lungs Heart ASA score ASA 1: a normal healthy patient ASA 2: a patient with a mild systemic disease (mid diabetes, controlled hypertension, obesity ASA 3: a patient with a severe systemic disease that limits activity (angina, COPD, prior Myocardial infarction) ASA 4: a patient with an incapacitating disease that is a constant threat to life (CHF, renal failure) ASA 5: a moribund patient not expected to survive 24 hrs. (ruptured aneurysm) ASA 6: a declared brain- patient whose organs are being harvested. For emergent operations, add the letter E after the classification Mallampati Classification Grade 2 Sedation Plan Analgesia, Amnesia, Plan communicated to team members The patient is an appropriate candidate to undergo the planned procedure, sedation, and anesthesia. The patient immediately re-assessed prior to indication. JIMMY GE MD FACP FAC CCDS May 24, 2022 09:58
[2022-05-24] MEDS ORDERED: PATIENT MAY USE OWN MEDS, ALL PO SCH (10:00)
[2022-05-24] MEDS ORDERED: ACETAMINOPHEN 325 MG TABLET PO PRN (10:15)
[2022-05-24] MEDS ORDERED: TIRZEPATIDE 5 MG SQ SCH (10:15)
[2022-05-24] MEDS ORDERED: RT-ALBUTEROL SULF 2.5 MG/3 ML PRE-MIX VIAL INH PRN (10:15)
--- NOTE | 2022-05-24 10:23 | Cardiac Cath Report ---
CARDIAC CATHETERIZATION DATE OF PROCEDURE: 05/24/22 INDICATION: Abnormal stress test HISTORY: The patient is a 61 year old female with DM II, ht, PAF, chest discomfort and abnormal MPI (lateral ischemia) PROCEDURES PERFORMED: 1. Card cath 2. iFR of LAD 2. Stenting of mid LAD PROCEDURE DESCRIPTION: After informed consent and in the fasting state, left hea rt catheterization was first unsuccessfully attempted through the R radial artery (artery punctured multiple times but unable to advance wire past the antecubital fossa) and then performed through the R femoral artery utilizing a 5 Wallisian system by percutaneous approach. Standard [place] catheters were utilized for the diagnostic portion of the procedure. All catheters were excha nged over a guidewire. HEMODYNAMICS: LVEDP 22 mmHg, no pressure gradient across the aortic valved LV ANGIO LVEF 55-60%. No wall motion abnormality seen in the [place] projection CORONARY ANGIOGRAPHY: Left main coronary artery: Ok Left anterior descending coronary artery: moderate mid LAD stenosis with haziness, iFR 0.89-09 (indicating hemodynamic significance), percent stenosis es timated to be 75% (given significant iFR) Left circumflex coronary artery: mild plaques Right coronary artery: dominant, mild plaques iFR - Sheath exchanged over wire for 6 F sheath, 6F JL4 guide, Omni wire - iFR 0.89-09 prior to intervention (hemodynamically significant) - iFR 0.93-0.94 after intervention to mid LAD (see below) PERCUTANEOUS CORONARY INTERVENTION: Guide: 6F JL4 Wire: Omni Stent: Skypoint 3.0 x 18 deployed at 12 stone; prox half of dilated with stent balloon to 18 stone Stenosis prior to stent: 75% Flow prior to stent: MARI 3 Stenosis after stent: 0% Flow after stent: MARI 3 IMPRESSION: 1. Single vessel CAD consisting of 75% mid LAD stenosis stented with Skypoint with reduction of stenosis to 0% (MARI 3 flow) 2. Mild plaques in other cors. RCA dominant 3. LVEDP 22 mmHg 4. LVEF 55-60% JIMMY GE MD FACP [facility] May 24, 2022 10:23
[2022-05-24] MEDS: NS IV 1000 ML 1,000 ML IV SCH ×2 (11:48→15:33)
[2022-05-24] MEDS ORDERED: ATROPINE INJ 0.4 MG/ML SDV ONE (13:44)
[2022-05-24] MEDS: RT--FLUTICASONE/SALMETEROL 113-14 (AIRDUO RespiCLICK) IH SCH (20:01)
[2022-05-24] MEDS: GABAPENTIN 300 MG (NEURONTIN) CAP PO SCH (20:59)
[2022-05-24] MEDS ORDERED: RAMELTEON 8 MG PO SCH (21:00)
[2022-05-24] MEDS ORDERED: FORMOTEROL FUMARATE INH SCH (21:00)
[2022-05-24] MEDS ORDERED: INSULIN DEGLUDEC 40 UNIT SC SCH (21:00)
[2022-05-24] MEDS ORDERED: BUDESONIDE INH SCH (21:00)
[2022-05-24] MEDS ORDERED: [UNRECOGNIZED DRUG - OTHER] INH SCH (21:00)
[2022-05-24] MEDS ORDERED: SENNOSIDES 8.6 MG (SENOKOT) TAB PO SCH (21:00)
[2022-05-24] MEDS: oxyCODONE/APAP 5/325MG (PERCOCET 5) TABLET PO PRN (22:46)
[2022-05-25] VITALS (11 sets, daily range): BP systolic 120–188; BP diastolic 58–103
[2022-05-25] MEDS ORDERED: hydrALAZINE (APESOLINE) 20 MG/ML VIAL ONE ×2 (01:26→06:05)
[2022-05-25] MEDS: hydrALAZINE (APESOLINE) 20 MG/ML VIAL IV PRN ×2 (01:31→06:09)
[2022-05-25] MEDS: oxyCODONE/APAP 5/325MG (PERCOCET 5) TABLET PO PRN (04:23)
[2022-05-25 05:03] LABS: BASOPHILS # (AUTO) 0.1 10^3/uL (0.0-0.1); BASOPHILS % (AUTO) 1 % (0-10); EOSINOPHILS # (AUTO) 0.7 10^3/uL (0.0-0.3); EOSINOPHILS % (AUTO) 4 % (0-10); HEMATOCRIT 36 % (35-52); HEMOGLOBIN 11.7 g/dL (11.5-16.0); LYMPHOCYTES # (AUTO) 4.5 10^3/uL (1.0-4.0); LYMPHOCYTES % (AUTO) 28 % (12-44); MEAN CORPUSCULAR HEMOGLOBIN 28 pg (25-34); MEAN CORPUSCULAR HGB CONC 32 g/dL (32-36); MEAN CORPUSCULAR VOLUME 87 fL (80-99); MEAN PLATELET VOLUME 9.8 fL (9.0-12.2); MONOCYTES # (AUTO) 0.9 10^3/uL (0.0-1.0); MONOCYTES % (AUTO) 6 % (0-12); NEUTROPHILS # (AUTO) 9.8 10^3/uL (1.8-7.8); NEUTROPHILS % (AUTO) 61 % (42-75); PLATELET COUNT 334 10^3/uL (130-400); WHITE BLOOD COUNT 16.1 10^3/uL (4.3-11.0)
[2022-05-25 05:11] LABS: POTASSIUM 3.7 MMOL/L (3.6-5.0)
[2022-05-25 05:13] LABS: CALCIUM 8.4 MG/DL (8.5-10.1)
[2022-05-25 05:17] LABS: CREATININE SERUM 0.85 MG/DL (0.60-1.30)
[2022-05-25 05:19] LABS: MAGNESIUM 1.6 MG/DL (1.6-2.4)
[2022-05-25 05:32] LABS: EOSINOPHILS % (MANUAL) 6 %; LYMPHOCYTES % (MANUAL) 26 %; MONOCYTES % (MANUAL) 2 %; NEUTROPHILS % (MANUAL) 66 %; RBC MORPH NORMAL
[2022-05-25] MEDS ORDERED: hydrALAZINE (APESOLINE) 20 MG/ML VIAL IV PRN (06:30)
--- NOTE | 2022-05-25 07:57 | Progress Note - Cardiology ---
Cardiology SOAP Progress Note Subjective: Lying in bed No c/o right groin discomfort No c/o CP, palpitations, SOB C/O "hands itching this morning" C/O localized right calf area with itching and redness - which was present prior to this hospital admission C/O localized area of her left upper arm with swelling at times (none currently) - has been present since prior to hospital admission - has been following with PCP per pt report Objective: I&O/Vital Signs Side: right Groin site without hematoma: Yes Condition: DP/PT pulses palpable, extremity w/d/p Bruising: mild bruising Constitutional: AAO x 3, well-developed, well-nourished Respiratory: No accessory muscle use, No respiratory distress; chest expansion is symmetric, chest is bilaterally symmetric, lungs clear to auscultation Cardiovascular: irregularly irregular; No JVD; S1 and S2 Gastrointestional: No tender; soft, round, audible bowel sounds Extremities: no lower extremity edema bilateral Neurologic/Psychiatric: grossly intact (moves all extremities) Skin: No rash on exposed areas, No ulcerations on exposed areas Results/Procedures: Labs Microbiology 05/24/22 MRSA Screen - Final, Complete MRSA not isolated A/P: Assessment: CAD - MPI of 05-03-22 is indicative of a sm to mod amt of inferolateral ischemia (SDS 7). Normal regional wall motion. LVEF 74% - Cardiac cath of 05-24-22: Single vessel CAD consisting of 75% mid LAD stenosis stented with Skypoint with reduction of stenosis to 0% (MARI 3 flow). Mild plaques in other cors. RCA dominant. LVEDP 22 mmHg. LVEF 55-60% A-fib with RVR during recent hospitalization of 03-17-22 - converted to SR, but continues to have intermittent episodes of a-fib with a controlled rate - reports h/o ablation in [place], [place] appro 6 yrs ago - she had been off OAC since her ablation - restarted Eliquis 5mg BID - Echo 03/17/22: mod conc LVH, LVEF 60-65%, mild MAC, PASP 25-30 mmHg HTN - multi-drug regimen per pt report - Losartan, Hydralazine, Norvasc - reports intolerant to BB d/t fatigue, dizziness and bradycardia DM - insulin tx GERD Asthma Gen body pains, chronic Suspected sleep apnea - advise sleep studies as an out pt C/O Plan: Ok to discharge home today Continue Plavix, d/c ASA after today's dose and continue Xarelto for stroke prophylaxis - having her on all 3 agents increases her risk of bleeding Advise f/u in 1-2 weeks or sooner if needed Regarding c/o non-specific localized swelling and itching and redness, which per pt report were present before this hospitalization and procedure, we advise continued f/u with her PCP Advised continuation of statin with repeat lab n 6 weeks CAROL ANN HALE May 25, 2022 07:57
[2022-05-25] MEDS ORDERED: ASPI81TA64 PO (07:59)
[2022-05-25] MEDS ORDERED: ATOR40TA PO (07:59)
[2022-05-25] MEDS ORDERED: CLOP75TA28 PO (07:59)
[2022-05-25] MEDS ORDERED: RIVAROXABAN 20 MG TABLET (XARELTO) PO SCH (08:00)
[2022-05-25] MEDS: GABAPENTIN 300 MG (NEURONTIN) CAP PO SCH (08:10)
[2022-05-25] MEDS ORDERED: diphenhydrAMINE 25 MG TAB (BENADRYL) PO NR (08:30)
[2022-05-25] MEDS ORDERED: ESCITALOPRAM 10 MG TAB PO SCH (09:00)
[2022-05-25] MEDS ORDERED: DULOXETINE 60 MG CAPSULE PO SCH (09:00)
[2022-05-25] MEDS ORDERED: DULoxetine 30 MG (CYMBALTA) CAP PO SCH (09:00)
[2022-05-25] MEDS ORDERED: ASPIRIN 81 MG CHEW (CHILDREN'S ASA) PO SCH (09:00)
[2022-05-25] MEDS ORDERED: IRBESARTAN 300 MG PO SCH (09:00)
[2022-05-25] MEDS ORDERED: CLOPIDOGREL 75 MG (PLAVIX) TABLET PO SCH (09:00)
[2022-05-25] MEDS ORDERED: NON-FORMULARY MEDICATION 1 EA EA (Duloxetine HCl 60 MG) PO SCH (09:00)
[2022-05-25] MEDS ORDERED: NON-FORMULARY MEDICATION 1 EA EA (Diltiazem HCl (Diltiazem ER) 300 MG) PO SCH (09:00)
[2022-05-25] MEDS: RT--FLUTICASONE/SALMETEROL 113-14 (AIRDUO RespiCLICK) IH SCH (09:13)
--- NOTE | 2022-05-25 09:34 | Discharge Inst-Cardiology ---
Discharge Inst-Cardiac Discharge Medications New Medications: Atorvastatin Calcium (Lipitor) 40 Mg Tablet 40 MG PO HS, #90 TAB 3 Refills Clopidogrel Bisulfate (Clopidogrel) 75 Mg Tablet 75 MG PO DAILY, #90 TAB 3 Refills Continued Medications: Albuterol Sulfate (Ventolin Hfa) 90 Mcg Hfa.aer.ad 2 PUFF INH Q6H PRN for SHORTNESS OF BREATH, EA Budesonide/Formoterol Fumarate (Budesonide-Formoterol 80-4.5) 80 Mcg-4.5 Mcg/Actuation Hfa.aer.ad 2 PUFF INH BID, EA Diltiazem HCl (Diltiazem ER) 300 Mg Capsule.er 300 MG PO DAILY, CAP Duloxetine HCl (Duloxetine HCl) 60 Mg Capsule.dr 60 MG PO DAILY, CAP Escitalopram Oxalate (Escitalopram Oxalate) 10 Mg Tablet 10 MG PO DAILY, TAB Gabapentin (Neurontin) 300 Mg Capsule 300 MG PO BID, CAP Hydralazine HCl (Hydralazine HCl) 10 Mg Tablet 20 MG PO TID, TAB TAKES 2 (10MG) TABLETS Insulin Degludec (Tresiba Flextouch U-100) 100 Unit/Ml (3 Ml) Insuln.pen 40 UNITS SC HS, UNITS Irbesartan (Irbesartan) 300 Mg Tablet 300 MG PO DAILY, TAB Ramelteon (Ramelteon) 8 Mg Tablet 8 MG PO HS, TAB Rivaroxaban (Xarelto) 20 Mg Tablet 20 MG PO DAILY, TAB Sennosides (Vegetable Laxative) 8.6 Mg Tablet 8.6 MG PO HS, TAB Sennosides/Docusate Sodium (Stool Softener Tablet) 8.6 Mg-50 Mg Tablet 1 EACH PO HS, TAB Tirzepatide (Mounjaro) 5 Mg/0.5 Ml Pen.injctr 5 MG SQ TUESDAYS, VIAL Discontinued Medications: Ibuprofen (Ibuprofen) 600 Mg Tablet 600 MG PO BID PRN for PAIN-MILD (1-4), TAB New, Converted or Re-Newed RX: Transmitted to Pharmacy Patient Instructions Patient Instructions: Please schedule follow up appointment to see Dr. Fleming in 1-2 weeks CAROL ANN HALE May 25, 2022 09:34
--- NOTE | 2022-05-25 13:31 | Progress Note - Cardiology ---
Cardiology SOAP Progress Note Subjective: No leg or groin discomfort or discoloration No focal weakness No n/v/d No shortness of breath No cp or palp or syncope Objective: I&O/Vital Signs 05/25/22 05/25/22 05/25/22 05/25/22 02:00 03:00 04:00 05:00 Pulse 87 92 86 74 Resp 18 17 15 16 B/P (MAP) 120/103 (109) 151/69 (93) 148/65 (91) 177/81 (109) Pulse Ox 93 94 94 94 O2 Delivery Room Air Room Air Room Air Room Air 05/25/22 05/25/22 05/25/22 05/25/22 06:00 07:00 07:17 07:58 Temp 36.3 Pulse 75 72 80 Resp 40 9 B/P (MAP) 188/85 (119) 140/58 (85) Pulse Ox 95 94 O2 Delivery Room Air Room Air 05/25/22 05/25/22 05/25/22 05/25/22 08:00 09:02 09:13 12:15 Temp 36.3 Pulse 87 87 Resp 9 18 B/P (MAP) 143/73 (96) 143/73 Pulse Ox 94 94 94 O2 Delivery Room Air Room Air Room Air Room Air 05/25/22 00:00 Intake Total 250 ml Output Total 0 ml Balance 250 ml Side: right Groin site without hematoma: Yes Condition: DP/PT pulses palpable, extremity w/d/p Bruising: mild bruising Constitutional: AAO x 3, well-developed, well-nourished Respiratory: No accessory muscle use, No respiratory distress; chest expansion is symmetric, chest is bilaterally symmetric, lungs clear to auscultation Cardiovascular: irregularly irregular; No JVD; S1 and S2 Gastrointestional: No tender; soft, round, audible bowel sounds Extremities: no lower extremity edema bilateral Neurologic/Psychiatric: other (moves all limbs) Skin: No rash on exposed areas, No ulcerations on exposed areas Results/Procedures: Labs Laboratory Tests 05/24/22 20:55: Glucometer 233H 05/25/22 04:35: White Blood Count 16.1H, Red Blood Count 4.15, Hemoglobin 11.7, Hematocrit 36, Mean Corpuscular Volume 87, Mean Corpuscular Hemoglobin 28, Mean Corpuscular Hemoglobin Concent 32, Red Cell Distribution Width 13.8, Platelet Count 334, Mean Platelet Volume 9.8, Immature Granulocyte % (Auto) 0, Neutrophils (%) (Auto) 61, Lymphocytes (%) (Auto) 28, Monocytes (%) (Auto) 6, Eosinophils (%) (Auto) 4, Basophils (%) (Auto) 1, Neutrophils # (Auto) 9.8H, Lymphocytes # (Auto) 4.5H, Monocytes # (Auto) 0.9, Eosinophils # (Auto) 0.7H, Basophils # (Auto) 0.1, Immature Granulocyte # (Auto) 0.1, Neutrophils % (Manual) 66, Lymphocytes % (Manual) 26, Monocytes % (Manual) 2, Eosinophils % (Manual) 6, Blood Morphology Comment NORMAL, Sodium Level 140, Potassium Level 3.7, Chloride Level 107, Carbon Dioxide Level 22, Anion Gap 11, Blood Urea Nitrogen 14, Creatinine 0.85, Estimat Glomerular Filtration Rate 78, BUN/Creatinine Ratio 16, Glucose Level 133H, Calcium Level 8.4L, Magnesium Level 1.6 Microbiology 05/24/22 MRSA Screen - Final, Complete MRSA not isolated A/P: Assessment: CAD - MPI of 05-03-22 is indicative of mod amt of inferolateral ischemia (SDS 7). Normal regional wall motion. LVEF 74% - Cardiac cath of 05-24-22: Single vessel CAD consisting of 75% mid LAD stenosis stented with Skypoint with reduction of stenosis to 0% (MARI 3 flow). Mild plaques in other cors. RCA dominant. LVEDP 22 mmHg. LVEF 55-60% A-fib with RVR during recent hospitalization of 03-17-22 - converted to SR, but continues to have intermittent episodes of a-fib with a controlled rate - reports h/o ablation in [place], [place] appro 6 yrs ago - she had been off OAC since her ablation - restarted Eliquis 5mg BID - Echo 03/17/22: mod conc LVH, LVEF 60-65%, mild MAC, PASP 25-30 mmHg HTN - multi-drug regimen per pt report - Losartan, Hydralazine, Norvasc - reports intolerant to BB d/t fatigue, dizziness and bradycardia DM - insulin tx GERD Asthma Gen body pains, chronic Suspected sleep apnea - advise sleep studies as an out pt Plan: Ok to discharge home today Continue Plavix, d/c ASA after today's dose and continue Xarelto for stroke prophylaxis - having her on all 3 agents increases her risk of bleeding Advise f/u in 1-2 weeks or sooner if needed Regarding c/o non-specific localized swelling and itching and redness, which per pt report were present before this hospitalization and procedure, we advise continued f/u with her PCP Advised continuation of statin with repeat lab in 6 weeks JIMMY GE MD FACP FAC CCDS May 25, 2022 13:31
== END 2022-05-25 12:15 | disposition home or self-care (01) ==
LOC: CATH 07:09 → ICU 10:31 → CATH 05-25 12:15
PROVIDERS: ATTEND Internal Medicine Cardiovascular Disease
DX: I25.10 Atherosclerotic heart disease of native coronary artery without angina pectoris (principal); R94.39 Abnormal result of other cardiovascular function study; R07.89 Other chest pain; I48.0 Paroxysmal atrial fibrillation; I48.20 Chronic atrial fibrillation, unspecified; I10 Essential (primary) hypertension; E11.9 Type 2 diabetes mellitus without complications; J45.909 Unspecified asthma, uncomplicated; G89.29 Other chronic pain; M54.2 Cervicalgia; M79.602 Pain in left arm; K21.9 Gastro-esophageal reflux disease without esophagitis; Z79.899 Other long term (current) drug therapy; Z79.4 Long term (current) use of insulin; Z79.01 Long term (current) use of anticoagulants; Z79.82 Long term (current) use of aspirin; Z28.310 Unvaccinated for COVID-19; Z95.818 Presence of other cardiac implants and grafts; Z98.890 Other specified postprocedural states
CPT/HCPCS: 36140; 80048; 80053; 80061; 82947; 83735; 85007; 85027 ×2; 85610; 85730; 87081; 93005 ×2; 93458; 93571; 94640 ×2; C1769; C1874; C1887; C1894 ×2; C9600; 36415

== ENCOUNTER → 2022-07-01 | Outpatient (CLI) | payer MEDICARE ==
[~2022-07-01] MED LIST changes: +ASPI81TA64 PO; +ATOR40TA PO; +CLOP75TA28 PO; +DILT300C49 PO; +ESCI-2 PO; +GABA300C PO; +IRBE300T17 PO; +SENN-272 PO; +SENN8.6T62 PO; +TIRZ5PEN SQ
== END ==
LOC: CARD 10:44
PROVIDERS: ATTEND Nurse Practitioner Family
DX: R71.8 Other abnormality of red blood cells (principal); R94.31 Abnormal electrocardiogram [ECG] [EKG]
CPT/HCPCS: 93005

== ENCOUNTER 2022-10-05 06:17 | Outpatient (CLI) | payer MEDICARE ==
[~2022-10-05] VITALS: Ht 170.2 cm; Wt 101.8 kg
[~2022-10-05 06:17] MED LIST changes: +DILT300C38 PO; -DILT300C49 PO; -LOSA100T57 PO; +LOSA100T58 PO
[2022-10-05] MEDS ORDERED: PANT40SU PO (11:43)
== END 2022-10-05 11:54 | disposition home or self-care (01) ==
LOC: PREOP 06:17
PROVIDERS: ATTEND Internal Medicine
DX: Z01.818 Encounter for other preprocedural examination (principal)

== ENCOUNTER 2022-10-14 07:58 | Day surgery (SDC) | payer MEDICARE ==
--- NOTE | 2022-09-30 05:39 | HISTORY AND PHYSICAL ---
COLONOSCOPY HISTORY AND PHYSICAL HISTORY OF PRESENT ILLNESS: The patient is a 62-year-old black female who is being set up for screening colonoscopy. She is deemed to be of higher than average risk as her sister was diagnosed with colon cancer at the age of 60, it was metastatic. The patient reports one other colonoscopy nonscreening reason was a little over 10 years ago. She does not recall having any polyps at that time. She denies melena, bright red blood per rectum or change in bowel habit. She does report a month history of predominantly nonproductive cough. It occurs throughout the day, sometimes there will be some associated sneezing. She does report nasal congestion and postnasal drip when asked about changes in environment as she does have a history of asthma. She has had a new dog for the past 3 months. She is not aware of any other changes in the environment. She denies waking up at night, choking. She will have some occasional heartburn, but nothing that is seemed worse. She does report some postnasal drip. She is compliant with Azmacort and as needed albuterol. PAST MEDICAL HISTORY: Other than asthma, it is pertinent for type 2 diabetes for which she has been on Mounjaro and has already lost over 20 pounds this year. She also takes 40 units for CPAP at bedtime, her only other diabetic medication. She has a history of paroxysmal atrial fibrillation and hypertension. She is on Xarelto. PHYSICAL EXAMINATION: GENERAL: Reveals a black female who appears to be in no acute distress. After I finished the interview and the nurse was instructing her on her prep, she did cough. She did have a coughing episode that was nonproductive. HEENT: Unremarkable. Sclerae nonicteric. CHEST: Clear to auscultation. While I was listening deep breathing, did not induce cough. Nasal turbinates are slightly erythematous. No polyps were noted. Posterior pharynx was unremarkable. No drainage visualized. CARDIOVASCULAR: Reveals a regular rate and rhythm without murmur, S3, or S4. ABDOMEN: Soft, supple without mass, organomegaly, or tenderness. EXTREMITIES: No cyanosis, clubbing or edema. ASSESSMENT AND PLAN: 1. Due to family history for colon cancer, index case being her sister, diagnosed at the age of 60, she is being set up for screening colonoscopy. Prep instructions were given and questions were answered. 2. Increased nasal symptomatology with drainage and cough. We will add Flonase. The patient was advised it may take several weeks to have affect. If there is no improvement with this, we did discuss the possibility of an allergic reaction to [employer]IM[employer], specifically her dog. It there is no improvement, she is also at increased risk for reflux issues. If she is not improving on Flonase nasal spray by the time she returns for regular followup on the , I will want to add EGD evaluation for evaluation for reflux related issues and would perform diagnostic EGD at the time of her colonoscopy. Prep instructions were given and questions were answered. Job ID: [id number] DocumentID: [id number] Dictated Date: 09/26/2022 16:34:49 Field Kiln Burner Date: 09/26/2022 17:00:00 Dictated By: BRANDON RUVALCABA MD
[~2022-10-14] VITALS: Ht 170 cm; Wt 101.8 kg
[~2022-10-14 07:58] MED LIST changes: +PANT40SU PO
[2022-10-14] MEDS ORDERED: LACTATED RINGERS 1,000 ML IV STA (08:00)
--- NOTE | 2022-10-14 08:26 | Pre-Op Note & Conscious Sedat ---
Pre-Operative Progress Note Date H&P Reviewed: Oct 14, 2022 Time H&P Reviewed: 08:25 History & Physical: H&P Reviewed, Patient Examed, No changes noted Pre-Op Diagnosis: screening FH of colon cancer Moderate Sedation PreProcedure ASA Score 2 Airway Lungs Heart ASA score ASA 1: a normal healthy patient ASA 2: a patient with a mild systemic disease (mid diabetes, controlled hypertension, obesity ASA 3: a patient with a severe systemic disease that limits activity (angina, COPD, prior Myocardial infarction) ASA 4: a patient with an incapacitating disease that is a constant threat to life (CHF, renal failure) ASA 5: a moribund patient not expected to survive 24 hrs. (ruptured aneurysm) ASA 6: a declared brain- patient whose organs are being harvested. For emergent operations, add the letter E after the classification Mallampati Classification Grade 2 Sedation Plan Analgesia, Amnesia, Plan communicated to team members, Discussed options with patient/fam, Discussed risks with patient/fam The patient is an appropriate candidate to undergo the planned procedure, sedation, and anesthesia. The patient immediately re-assessed prior to indication. BRANDON RUVALCABA MD Oct 14, 2022 08:26
[2022-10-14 08:30] VITALS: BP 139/78
[2022-10-14] MEDS ORDERED: MIDAZOLAM INJ 2 MG/2 ML VIAL ONE (09:12)
[2022-10-14] MEDS ORDERED: PROPOFOL INJECTION 50 ML IV ONE (09:12)
--- NOTE | 2022-10-14 09:53 | Progress Note-Post Operative ---
Post-Procedure Note Physician (s)/Hot Strip Mill Inspector (s) Physician BRANDON RUVALCABA MD Pre-Procedure Diagnosis Pre-Procedure Diagnosis: screening FH of colon cancer Post-Procedure Diagnosis Post-operative diagnosis: Prior to undergoing colonoscopy digital rectal evaluation was performed. Anal sphincter tone was normal and the perianal reflexes intact. No abnormalities noted to inspection of the anal canal or distal rectal vault. The colonoscope was then inserted into the rectum and under direct visualization advanced to the cecum. The cecum was identified by the indication of the ileocecal valve and cecal strap. Photographic documentation was obtained. Careful inspection was made as the colonoscope withdrawn. Quality the prep was fair. Findings: There was no evidence for internal or external hemorrhoids. The rectum was unremarkable. Moderate diverticular disease confined sigmoid colon was present without evidence for diverticulitis. The descending colon splenic flexure transverse colon hepatic flexure ascending colon and cecum were unremarkable with no evidence for neoplasia. A/P 1. Moderate diverticular disease confined sigmoid colon was present without evidence of diverticulitis. This is otherwise normal colonoscopy to cecum. Considering family history would advocate consideration for repeat screening colonoscopy in 5 years. BRANDON RUVALCABA MD Oct 14, 2022 09:53
[2022-10-14 09:55] VITALS: BP 125/60
[2022-10-14 10:00] VITALS: BP 125/60
[2022-10-14 10:30] VITALS: BP 126/59
[2022-10-14 11:05] VITALS: BP 126/59
--- NOTE | 2022-10-14 12:33 | Anesthesia-General Post-Op ---
MAC Patient Condition Mental Status/LOC: Same as Preop Cardiovascular: Satisfactory Nausea/Vomiting: Absent Respiratory: Satisfactory Pain: Controlled Complications: Absent Post Op Complications Complications None Follow Up Care/Instructions Patient Instructions None needed. Anesthesiology Discharge Order Discharge Order Patient is doing well, no complaints, stable vital signs, no apparent adverse anesthesia problems. No complications reported per nursing. MECCA AMBROCIO CRNA Oct 14, 2022 12:33
== END 2022-10-14 11:05 | disposition home or self-care (01) ==
LOC: ENDO 07:58
PROVIDERS: ATTEND Internal Medicine
DX: Z12.11 Encounter for screening for malignant neoplasm of colon (principal); K57.30 Diverticulosis of large intestine without perforation or abscess without bleeding; Z80.0 Family history of malignant neoplasm of digestive organs; R05.9 Cough, unspecified; R09.82 Postnasal drip; R09.81 Nasal congestion; Z79.85 Long-term (current) use of injectable non-insulin antidiabetic drugs; J45.909 Unspecified asthma, uncomplicated; Z79.899 Other long term (current) drug therapy; Z79.4 Long term (current) use of insulin; G47.33 Obstructive sleep apnea (adult) (pediatric)
CPT/HCPCS: 82947; G0105

== ENCOUNTER 2023-02-01 05:57 | Outpatient (CLI) | payer MEDICARE ==
[~2023-02-01] VITALS: Ht 170 cm; Wt 95.0 kg
[2023-02-01] MEDS ORDERED: APIX5TAB PO (14:41)
[2023-02-01] MEDS ORDERED: CLOP75TA28 PO (14:41)
== END 2023-02-01 14:44 | disposition home or self-care (01) ==
LOC: PREOP 05:57
PROVIDERS: ATTEND Internal Medicine
DX: Z01.818 Encounter for other preprocedural examination (principal)